=== PATIENT | female | born 1960 | race Caucasian/White ===

== ENCOUNTER 2016-04-17 16:44 | Inpatient (IN) | payer BC ==
[~2016-04-17] VITALS: Ht 157.5 cm; Wt 71.6 kg
[2016-04-17] VITALS (8 sets, daily range): BP systolic 119–176; BP diastolic 59–92; PULSE 60–84; RESP 16–20; TEMP 97.3–98.5; O2SAT 96–100
[2016-04-17] MEDS ORDERED: SODIUM CHLOR 0.9% 1000 ML INJ 1,000 ML IV ONE (16:57)
[2016-04-17] MEDS ORDERED: HYDROmorphone HCL PF 1 MG/ML VIAL IVS ONE (17:00)
[2016-04-17] MEDS ORDERED: ONDANSETRON HCL 4 MG/2 ML VIAL IVP ONE (17:00)
[2016-04-17] MEDS ORDERED: SODIUM CHLORIDE 0.9% FLUSH 5 ML FLUSH IVF PRN ×2 (17:00→19:15)
--- NOTE | 2016-04-17 17:02 | PD ---
HPI Chief Complaint: GI Complaint Time Seen by Provider: 16:57 Travel History International Travel<30 days: No Contact w/Intl Traveler<30days: No Traveled to known affect area: No History of Present Illness HPI 56-year-old female with history of migraine headaches, hypertension, presents to the ER today because she states that she had a sudden onset of pains at the back of her neck going up to the posterior part of her head. She states that the headache that she is having now is a 10 out of 10. Nauseous, vomiting. She states that this feels worse than her usual migraine. She denies any fevers or any other symptoms. Pain worsens with neck movement. She denies any injuries. Pain worsens with neck flexion. Modifying Factors: Neck flexion Associated Signs & Symptoms: Neck pain and headache, nausea and vomiting Risk Factors: Migraine headache history PFSH Past Medical History Migraines: Yes ?: Not Past Surgical History Surgical History: No Previous Surgery Social History Tobacco Use: No Allergies-Medications (Allergen,Severity, Reaction): Coded Allergies: No Known Allergies (Unverified , 04/17/16) Reported Meds & Prescriptions Reported Meds & Active Scripts Active Reported Ranitidine (Ranitidine HCl) 150 Mg Tab 150 Mg PO DAILY Cranberry (Cranberry (Vaccinium Macrocarpon)) 125 Mg Tab Zetia (Ezetimibe) 10 Mg Tab 10 Mg PO DAILY Fioricet (Gbomevpjmo-Taqpgwekrbzim-Ktsmidnt) 50-300-40 Mg Cap 1 Cap PO Q4H PRN Rhodiola (Rhodiola Rosea) 300 Mg Cap Vitamin D3 (Cholecalciferol) 1,000 Unit Chew 1,000 Units CHEW DAILY Multi-Vitamin Daily (Multiple Vitamin) 1 Tab Tab 1 Tab PO DAILY Omeprazole 20 Mg Tab 20 Mg PO DAILY Review of Systems Except as stated in HPI: all other systems reviewed are Neg Physical Exam Narrative GENERAL: Well-nourished, well-developed middle age white female patient in moderate distress. Awake and oriented 3. No photophobia. SKIN: Warm and dry. HEAD: Normocephalic. EYES: No scleral icterus. No injection or drainage. NECK: trachea midline. Mild diffuse tenderness on palpation of the posterior upper cervical area, pain with neck flexion. No obvious deformities identified. CARDIOVASCULAR: Regular rate and rhythm without murmurs, gallops, or rubs. RESPIRATORY: Breath sounds equal bilaterally. No accessory muscle use. GASTROINTESTINAL: Abdomen soft, non-tender, nondistended. MUSCULOSKELETAL: No cyanosis, or edema. BACK: Nontender without obvious deformity. No CVA tenderness. NEUROLOGICAL: Awake and alert. Cranial nerves II through XII intact. Motor and sensory grossly within normal limits. Five out of 5 muscle strength in all muscle groups. Normal speech. Data Data Last Documented VS Vital Signs Date Time Temp Pulse Resp B/P Pulse Ox O2 Delivery O2 Flow Rate FiO2 04/17/16 18:28 67 16 119/59 98 Nasal Cannula 2 04/17/16 16:48 97.3 Orders Complete Blood Count With Diff (04/17/16 16:57) Comprehensive Metabolic Panel (04/17/16 16:57) Westergren Sedimentation Rate (04/17/16 16:57) C-Reactive Protein (Crp) (04/17/16 16:57) Prothrombin Time / Inr (Pt) (04/17/16 16:57) Act Partial Throm Time (Ptt) (04/17/16 16:57) Ct Brain W/O Iv Contrast(Rout) (04/17/16 16:57) Ecg Monitoring (04/17/16 16:57) Iv Access Insert/Monitor (04/17/16 16:57) Oximetry (04/17/16 16:57) Sodium Chloride 0.9% Flush (Ns Flush) (04/17/16 17:00) Ondansetron Inj (Zofran Inj) (04/17/16 17:00) Hydromorphone Pf Inj (Dilaudid Pf Inj) (04/17/16 17:00) Sodium Chlor 0.9% 1000 Ml Inj (Ns 1000 M (04/17/16 16:57) Ct Cerv Spine W/O Contrast (04/17/16 16:57) Cta Brain W Iv Contrast W 3d (04/17/16 ) Consult Neurosurgery (04/17/16 ) Admit To Inpatient (04/17/16 ) Code Status (04/17/16 19:00) Vital Signs (Adult) YUSEF.Q1H (04/17/16 19:00) ^ Elevate Head Of Bed (04/17/16 19:00) Neuro Checks . ORDERED (04/17/16 19:00) Diet Npo (04/17/16 Dinner) Ns + Kcl 20 Meq Inj (Ns + Kcl 20 Meq Inj (04/17/16 19:00) Sodium Chloride 0.9% Flush (Ns Flush) (04/17/16 19:00) Sodium Chloride 0.9% Flush (Ns Flush) (04/17/16 21:00) Acetaminophen (Tylenol) (04/17/16 19:00) Pantoprazole Inj (Protonix Inj) (04/18/16 09:00) Ondansetron Inj (Zofran Inj) (04/17/16 19:00) Albuterol Neb (Albuterol Neb) (04/17/16 19:00) Complete Blood Count With Diff (04/18/16 04:00) Basic Metabolic Panel (Bmp) (04/18/16 04:00) Electrocardiogram (04/17/16 ) [facility] Coordinator / Telemetry (04/17/16 19:00) Scd Bilateral/Knee High YUSEF.BID (04/17/16 19:00) ^ Initiate Protocol (04/17/16 19:00) ^ Instruction (04/17/16 19:00) [facility] [place] (04/17/16 19:00) Chlorhexidine 2% Cloth (Chlorhexidine 2% (04/18/16 04:00) Chlorhexidine 2% Cloth (Chlorhexidine 2% (04/17/16 19:00) [facility] Pcr Surveillance (04/17/16 19:00) Inpatient Certification (04/17/16 ) Admit Order (Ed Use Only) (04/17/16 18:59) Nimodipine (Nimotop) (04/17/16 20:00) Ondansetron Inj (Zofran Inj) (04/17/16 19:15) Nicardipine Inj (Cardene Inj) (04/17/16 19:15) Labs Laboratory Tests Test 04/17/16 04/17/16 16:57 17:17 Prothrombin Time 11.1 SEC Prothromb Time International 1.0 RATIO Ratio Activated Partial 26.6 SEC Thromboplast Time White Blood Count 12.1 TH/MM3 Red Blood Count 4.47 MIL/MM3 Hemoglobin 13.0 GM/DL Hematocrit 38.6 % Mean Corpuscular Volume 86.4 FL Mean Corpuscular Hemoglobin 29.1 PG Mean Corpuscular Hemoglobin 33.7 % Concent Red Cell Distribution Width 13.2 % Platelet Count 335 TH/MM3 Mean Platelet Volume 8.5 FL Neutrophils (%) (Auto) 81.6 % Lymphocytes (%) (Auto) 13.8 % Monocytes (%) (Auto) 3.8 % Eosinophils (%) (Auto) 0.3 % Basophils (%) (Auto) 0.5 % Neutrophils # (Auto) 9.9 TH/MM3 Lymphocytes # (Auto) 1.7 TH/MM3 Monocytes # (Auto) 0.5 TH/MM3 Eosinophils # (Auto) 0.0 TH/MM3 Basophils # (Auto) 0.1 TH/MM3 CBC Comment DIFF FINAL Differential Comment Erythrocyte Sedimentation Rate 22 mm/hr Sodium Level 138 MEQ/L Potassium Level 3.6 MEQ/L Chloride Level 103 MEQ/L Carbon Dioxide Level 26.8 MEQ/L Anion Gap 8 MEQ/L Blood Urea Nitrogen 17 MG/DL Creatinine 0.67 MG/DL Estimat Glomerular Filtration 91 ML/MIN Rate Random Glucose 140 MG/DL Calcium Level 9.0 MG/DL Total Bilirubin 0.2 MG/DL Aspartate Amino Transf 20 U/L (AST/SGOT) Alanine Aminotransferase 24 U/L (ALT/SGPT) Alkaline Phosphatase 76 U/L C-Reactive Protein 1.38 MG/DL Total Protein 7.3 GM/DL Albumin 3.9 GM/DL MDM Medical Decision Making Medical Screen Exam Complete: Yes Emergency Medical Condition: Yes Medical Record Reviewed: Yes Interpretation(s) Laboratory Tests Test 04/17/16 17:17 White Blood Count 12.1 TH/MM3 (4.0-11.0) Neutrophils (%) (Auto) 81.6 % (16.0-70.0) Neutrophils # (Auto) 9.9 TH/MM3 (1.8-7.7) Random Glucose 140 MG/DL (74-106) C-Reactive Protein 1.38 MG/DL (0.00-0.30) Last [address] 04/17/163 Signed Impressions: Service Date/Time: Sunday, April 17, 2016 17:48 - CONCLUSION: Subarachnoid hemorrhage in the basilar cisterns and anterior to the brainstem concerning for a leaking aneurysm. Recommend further evaluation with CTA brain. findings called to emergency department physician. Juan Robertson MD Cervical Spine CT 04/17/169 Signed Impressions: Service Date/Time: Sunday, April 17, 2016 17:48 - CONCLUSION: 1. Moderate degenerative change of the lower cervical spine. No acute findings. Juan Robertson MD Differential Diagnosis Neck pain and headachesmigraine headaches versus cervical radiculopathy versus acute intracranial processes versus neck strain Narrative Course Patient was given IV fluids, Dilaudid, and Zofran in the ER. Vital signs are stable. Workup initiated including lab work and CAT scan. CAT scan reveals subarachnoid bleed. Case was discussed with Dr. Gutierrez who states that CTA will be needed for further evaluation and that the patient needs to be admitted to critical care unit under outreach counselor with consult to neurosurgery. Case was then discussed with Dr. Finch for admission. Aggregate critical care time was 25 minutes. Time to perform other separately billable procedures was not included in the critical care time. My time did not include minutes spent treating any other patients simultaneously or on activities that did not directly contribute to the patient's treatment. The services I provided to this patient were to treat and/or prevent clinically significant deterioration that could result in: Enlarging intracranial bleed, I provided critical care services requiring my management, as noted below: Chart data review, documentation time, medication orders and management, vital sign assessments/reviewing monitor data, ordering and reviewing lab tests, ordering and interpreting/reviewing x-rays and diagnostic studies, care of the patient and discussion of the patient with the admitting physicians. Diagnosis Primary Impression: Subarachnoid bleed Admitting Information Admitting Physician Requests: Admit Debora Morgan MD Apr 17, 2016 17:02
[2016-04-17] MEDS ORDERED: CHOL100025 CHEW (17:06)
[2016-04-17] MEDS ORDERED: CRAN125T (17:06)
[2016-04-17] MEDS ORDERED: BUTA1CAP PO (17:06)
[2016-04-17] MEDS ORDERED: MULT-65 PO (17:06)
[2016-04-17] MEDS ORDERED: RHOD300C (17:06)
[2016-04-17] MEDS ORDERED: RANI150T PO (17:06)
[2016-04-17] MEDS ORDERED: OMEP20TA PO (17:06)
[2016-04-17] MEDS ORDERED: ZETI10TA5 PO (17:06)
[2016-04-17 17:36] LABS: AUTOMATED NEUTROPHIL # 9.9 TH/MM3 (1.8-7.7); BASOPHIL # 0.1 TH/MM3 (0-0.2); BASOPHIL % 0.5 % (0.0-2.0); EOSINOPHIL % 0.3 % (0.0-4.0); HEMATOCRIT 38.6 % (35.0-46.0); HEMO FLAGS DIFF FINAL; LYMPH % 13.8 % (9.0-44.0); LYMPHOCYTE # 1.7 TH/MM3 (1.0-4.8); MEAN CELL VOLUME 86.4 FL (80.0-100.0); MEAN CORPUSCULAR HEMOGLOBIN 29.1 PG (27.0-34.0); MEAN CORPUSCULAR HGB CONC 33.7 % (32.0-36.0); MONO % 3.8 % (0.0-8.0); NEUT % 81.6 % (16.0-70.0); PLATELET COUNT 335 TH/MM3 (150-450); RED BLOOD COUNT 4.47 MIL/MM3 (4.00-5.30); RED CELL DISTRIBUTION WIDTH 13.2 % (11.6-17.2); WHITE BLOOD COUNT 12.1 TH/MM3 (4.0-11.0)
[2016-04-17 17:51] LABS: APTT (PATIENT) 26.6 SEC (24.3-30.1); PROTHROMBIN TIME - PATIENT 11.1 SEC (9.8-11.6)
[2016-04-17 18:00] LABS: ALT (GPT) 24 U/L (10-53); ANION GAP 8 MEQ/L (5-15); AST (GOT) 20 U/L (15-37); BICARBONATE 26.8 MEQ/L (21.0-32.0); BLOOD UREA NITROGEN 17 MG/DL (7-18); CHLORIDE 103 MEQ/L (98-107); GLOMERULAR FILTRATION RATE 91 ML/MIN (>89); POTASSIUM 3.6 MEQ/L (3.5-5.1); SODIUM (NA) 138 MEQ/L (136-145)
[2016-04-17 18:02] LABS: ALKALINE PHOSPHATASE 76 U/L (45-117); TOTAL BILIRUBIN ADULT 0.2 MG/DL (0.2-1.0)
--- NOTE | 2016-04-17 18:25 | RADRPT ---
EXAM DATE/TIME: 04/17/2016 17:48 [facility] COMPARISON: No previous studies available for comparison. INDICATIONS : Headache with nausea and pain in the back of her neck. RADIATION DOSE: 21.06 CTDIvol (mGy) MEDICAL HISTORY : None SURGICAL HISTORY : None. ENCOUNTER: Initial ACUITY: 1 day PAIN SCALE: 10/10 LOCATION: neck TECHNIQUE: Volumetric scanning of the cervical spine was performed. Multiplanar reconstructions in the sagittal, coronal and oblique axial planes were performed. Using automated exposure control and adjustment o f the mA and/or kV according to patient size, radiation dose was kept as low as reasonably achievable to obtain optimal diagnostic quality images. FINDINGS: There is moderate degenerative disc disease in the lower cervical spine. No fracture or spondylolisth esis. No significant bony canal stenosis. No prevertebral soft tissue swelling. CONCLUSION: 1. Moderate degenerative change of the lower cervical spine. No acute findings. Juan Robertson MD on April 17, 2016 at 18:20 Board Certified Radiologist. This report was verified electronically.
--- NOTE | 2016-04-17 18:32 | RADRPT ---
EXAM DATE/TIME: 04/17/2016 17:48 [facility] COMPARISON: No previous studies available for comparison. INDICATIONS : Headache with nausea starting today. RADIATION DOSE: 31.50 CTDIvol (mGy) MEDICAL HISTORY : None SURGICAL HISTORY : None. ENCOUNTER: Initial ACUITY: 1 day PAIN SCALE: 10/10 LOCATION: cranial TECHNIQUE: Multiple contiguous axial images were obtained of the head. Using automated exposure control and adj ustment of the mA and/or kV according to patient size, radiation dose was kept as low as reasonably a chievable to obtain optimal diagnostic quality images. FINDINGS: There is increased attenuation in the basilar cisterns and anterior to the brainstem in a pattern con cerning for subarachnoid hemorrhage. Primary differential diagnosis would be subarachnoid hemorrhage related to a leaking intracranial aneurysm. This would be better evaluated with CTA or MRA of the bra in. No hydrocephalus. No parenchymal hemorrhage identified. CONCLUSION: Subarachnoid hemorrhage in the basilar cisterns and anterior to the brainstem concerning for a leakin g aneurysm. Recommend further evaluation with CTA brain. findings called to emergency department physician. Juan Robertson MD on April 17, 2016 at 18:23 Board Certified Radiologist. This report was verified electronically.
[2016-04-17] MEDS ORDERED: MISCELLANEOUS NURSING INFORMATION XX SCH (19:00)
[2016-04-17] MEDS ORDERED: NS + KCL 20 MEQ INJ 1,000 ML IV SCH (19:00)
[2016-04-17] MEDS ORDERED: RESP: ALBUTEROL 2.5 MG/3 ML NEB (PRN) INH (19:00)
[2016-04-17] MEDS ORDERED: SODIUM CHLORIDE 0.9% FLUSH 5 ML FLUSH IV FLUSH PRN (19:00)
[2016-04-17] MEDS ORDERED: CHLORHEXIDINE GLUCONATE 2 % 1 PACK (2 CLOTHS) TOP PRN (19:00)
[2016-04-17] MEDS ORDERED: ACETAMINOPHEN 325 MG TAB PO PRN (19:00)
[2016-04-17] MEDS ORDERED: LABETALOL HCL 100 MG/20 ML VIAL IV PRN (19:15)
[2016-04-17] MEDS ORDERED: MAGNESIUM HYDROXIDE SUSP 30 ML CUP PO PRN (19:15)
[2016-04-17] MEDS ORDERED: cloNIDine HCL 0.1 MG TAB PO PRN (19:15)
[2016-04-17] MEDS ORDERED: ONDANSETRON HCL 4 MG/2 ML VIAL IV PUSH ONE (19:15)
[2016-04-17] MEDS ORDERED: niCARdipine INJ 25 MG in SODIUM CHLOR 0.9% 250 ML INJ 250 ML IV SCH ×4 (19:15)
[2016-04-17] MEDS ORDERED: levETIRAcetam 1000 MG INJ 100 ML IV ONE (19:15)
[2016-04-17] MEDS ORDERED: IOHEXOL 350 MG/ML 10 ML VIAL (for RAD DIAG) IV ONE (19:21)
[2016-04-17] MEDS: SODIUM CHLOR 0.9% 1000 ML INJ 1,000 ML IV SCH (19:35)
[2016-04-17] MEDS: ONDANSETRON ODT 4 MG TAB PO SCH ×2 (20:00→23:17)
[2016-04-17] MEDS ORDERED: niMODipine 30 MG CAP PO SCH (20:00)
--- NOTE | 2016-04-17 20:09 | PD.CONS ---
HPI Service Neurosurgery Consult Requested By ED Reason for Consult [facility] Primary Care Physician Non-Staff History of Present Illness 56 year old RH female with a hx of migraine headache sat in a high chair today for a hair cut and nearly fell. She suffered a neck jolt. Within ten minutes her jaws started to hurt bilaterally followed by an excruciating Rivera with nausea/ vomiting. She has no vertigo, no focal cranial nerve deficit. The pain and nausea remain severe. GCS is 14 for lethargy due to pain. She has no family hx of aneurysm. Review of Systems ROS Limitations: Other (pain) Constitutional: DENIES: Diaphoretic episodes, Fatigue, Fever, Weight gain, Weight loss, Chills, Dizziness, Change in appetite, Night Sweats Endocrine: DENIES: Abnorml menstrual pattern, Heat/cold intolerance, Polydipsia , Polyuria, Polyphagia Eyes: DENIES: Blurred vision, Diplopia, Eye inflammation, Eye pain, Vision loss , Photosensitivity, Double Vision Ears, nose, mouth, throat: DENIES: Tinnitus, Hearing loss, Vertigo, Nasal discharge, Oral lesions, Throat pain, Hoarseness, Ear Pain, Running Nose, Epistaxis, Sinus Pain, Toothache, Odynophagia Respiratory: DENIES: Apneas, Cough, Snoring, Wheezing, Hemoptysis, Sputum production, Shortness of breath Cardiovascular: DENIES: Chest pain, Palpitations, Syncope, Dyspnea on Exertion , PND, Lower Extremity Edema, Orthopnea, Claudication Gastrointestinal: COMPLAINS OF: Diarrhea, Vomiting, DENIES: Abdominal pain, Black stools, Bloody stools, Constipation, Nausea, Difficulty Swallowing, Anorexia Genitourinary: DENIES: Abnormal vaginal bleeding, Dysmenorrhea, Dyspareunia, Sexual dysfunction, Urinary frequency, Urinary incontinence, Urgency, Hematuria , Dysuria, Nocturia, Vaginal discharge Musculoskeletal: COMPLAINS OF: Neck pain, DENIES: Joint pain, Muscle aches, Stiffness, Joint Swelling, Back pain Integumentary: DENIES: Abnormal pigmentation, Pruritus, Rash, Nail changes, Breast masses, Breast skin changes, Nipple discharge Hematologic/lymphatic: DENIES: Bruising, Lymphadenopathy Immunologic/allergic: DENIES: Eczema, Urticaria Neurologic: COMPLAINS OF: Headache, DENIES: Abnormal gait, Localized weakness , Paresthesias, Seizures, Speech Problems, Tremor, Poor Balance Psychiatric: DENIES: Anxiety, Confusion, Mood changes, Depression, Hallucinations, Agitation, Suicidal Ideation, Homicidal Ideation, Delusions Past Family Social History Allergies: Coded Allergies: No Known Allergies (Unverified , 04/17/16) Past Medical History HTN Past Surgical History foot surgery Reported Medications Reported Meds & Active Scripts Active Reported Ranitidine (Ranitidine HCl) 150 Mg Tab 150 Mg PO DAILY Cranberry (Cranberry (Vaccinium Macrocarpon)) 125 Mg Tab Zetia (Ezetimibe) 10 Mg Tab 10 Mg PO DAILY Fioricet (Uocvuqoyky-Ydhfkcrmbqtte-Sskpuapr) 50-300-40 Mg Cap 1 Cap PO Q4H PRN Rhodiola (Rhodiola Rosea) 300 Mg Cap Vitamin D3 (Cholecalciferol) 1,000 Unit Chew 1,000 Units CHEW DAILY Multi-Vitamin Daily (Multiple Vitamin) 1 Tab Tab 1 Tab PO DAILY Omeprazole 20 Mg Tab 20 Mg PO DAILY Family History Parents are alive, father has migraines, some family members have HTN Social History , retired from last February, does not smoke, lives in [place] Physical Exam Vital Signs Vital Signs Date Time Temp Pulse Resp B/P Pulse Ox O2 Delivery O2 Flow Rate FiO2 04/17/16 18:28 67 16 119/59 98 Nasal Cannula 2 04/17/16 18:02 15 04/17/16 17:43 78 17 152/84 99 2 04/17/16 17:02 96 Room Air 04/17/16 16:56 18 04/17/16 16:48 97.3 80 20 176/92 97 Room Air Physical Exam Pleasant lady, cooperative and able to follow commands, very nauseous, atraumatic head and body, EOMI, pupils 2mm reactive, no nystagmus, face symmetric, tongue midline, voice intact No pronator drift, moves all ext with excellent strength, no sensory level, no neglect, no radicular numbness or paresthesias. Reflexes are 1/4 in the bic/tri/patella, no Abdul, no Babinski Abd soft NT, no peripheral edema, no rashes Laboratory Laboratory Tests Test 04/17/16 04/17/16 16:57 17:17 Prothrombin Time 11.1 Prothromb Time International 1.0 Ratio Activated Partial 26.6 Thromboplast Time White Blood Count 12.1 Red Blood Count 4.47 Hemoglobin 13.0 Hematocrit 38.6 Mean Corpuscular Volume 86.4 Mean Corpuscular Hemoglobin 29.1 Mean Corpuscular Hemoglobin 33.7 Concent Red Cell Distribution Width 13.2 Platelet Count 335 Mean Platelet Volume 8.5 Neutrophils (%) (Auto) 81.6 Lymphocytes (%) (Auto) 13.8 Monocytes (%) (Auto) 3.8 Eosinophils (%) (Auto) 0.3 Basophils (%) (Auto) 0.5 Neutrophils # (Auto) 9.9 Lymphocytes # (Auto) 1.7 Monocytes # (Auto) 0.5 Eosinophils # (Auto) 0.0 Basophils # (Auto) 0.1 CBC Comment DIFF FINAL Differential Comment Erythrocyte Sedimentation Rate 22 Sodium Level 138 Potassium Level 3.6 Chloride Level 103 Carbon Dioxide Level 26.8 Anion Gap 8 Blood Urea Nitrogen 17 Creatinine 0.67 Estimat Glomerular Filtration 91 Rate Random Glucose 140 Calcium Level 9.0 Total Bilirubin 0.2 Aspartate Amino Transf 20 (AST/SGOT) Alanine Aminotransferase 24 (ALT/SGPT) Alkaline Phosphatase 76 C-Reactive Protein 1.38 Total Protein 7.3 Albumin 3.9 Result Diagram: 04/17/16171604/17/161716 Imaging Last Impressions Head CT 04/17/161656 Signed Impressions: Service Date/Time: Sunday, April 17, 2016 17:48 - CONCLUSION: Subarachnoid hemorrhage in the basilar cisterns and anterior to the brainstem concerning for a leaking aneurysm. Recommend further evaluation with CTA brain. findings called to emergency department physician. Juan Robertson MD Cervical Spine CT 04/17/161656 Signed Impressions: Service Date/Time: Sunday, April 17, 2016 17:48 - CONCLUSION: 1. Moderate degenerative change of the lower cervical spine. No acute findings. Juan Robertson MD Assessment and Plan Diagnosis: (1) Subarachnoid bleed Plan: Perimesencephalic hemorrhage with no focal deficit, 2-3mm clot in the ambien cistern with blood seen down to C2. Plan CTA, MRI/MRA to rule out a dissection of the VAs or a small aneurysm of the posterior circulation. TCDs, nimotop, keppra, DVT and PUD prophylaxis ordered per protocol. Will control the BP to keep the SBP 120-140 ICD Code: I60.9 (2) HTN (hypertension) ICD Code: I10 Problem Qualifiers (1) HTN (hypertension): Qualified Code: I10 - Essential hypertension Brock Gutierrez Apr 17, 2016 20:09
[2016-04-17] MEDS ORDERED: PROMETHAZINE INJ 25 MG/ML VIAL IM PRN ×2 (20:15→22:00)
--- NOTE | 2016-04-17 20:23 | RADRPT ---
EXAM DATE/TIME: 04/17/2016 19:08 [facility] COMPARISON: No previous studies available for comparison. INDICATIONS : Evaluate for aneurysm. IV CONTRAST: 75 cc Omnipaque 350 (iohexol) IV RADIATION DOSE: 18.14 CTDIvol (mGy) MEDICAL HISTORY : None SURGICAL HISTORY : Kidney Cryo. ENCOUNTER: Initial ACUITY: 1 day PAIN SCALE: 5/10 LOCATION: cranial TECHNIQUE: Volumetric scanning was performed using a multi-row detector CT scanner. The data was post processed with a variety of visualization algorithms including full volume maximum intensity projection, multi -planar sliding thin slab reformation, curved planar reformation, and surface rendering techniques. Using automated exposure control and adjustment of the mA and/or kV according to patient size, radiat ion dose was kept as low as reasonably achievable to obtain optimal diagnostic quality images. FINDINGS: There is excellent visualization of the major intracranial arteries out to the second-order branch ve ssels. There is no evidence for aneurysm, vessel truncation or stenosis, and no evidence for vascula r malformation. CONCLUSION: 1. No discrete aneurysm is identified on CTA brain. There does appear be some mild vasospasm. Juna Robertson MD on April 17, 2016 at 20:14 Board Certified Radiologist. This report was verified electronically.
[2016-04-17] MEDS: HYDROmorphone HCL PF 1 MG/ML VIAL IV PUSH PRN (20:28)
--- NOTE | 2016-04-17 20:31 | HHI.HP ---
HPI Service Critical Care Medicine Primary Care Physician Non-Staff Admission Diagnosis subarachnoid bleed Diagnosis: Travel History International Travel<30 Days: No Contact w/Intl Traveler <30 Da: No Traveled to Known Affected Are: No History of Present Illness 56 yo WF with PMH of hyperlipidemia, migraine headaches who presented to [facility] ED today for sudden onset of headache 10/10 severity, bilateral jaw pain, neck pain , nausea, and photophobia that started after getting a haircut. CT brain demonstrated SAH in basilar cisterns concerning for aneurysmal leak. Neurosurgery has seen the patient and requested admission to critical care medicine service. Coags are normal. She is nauseated and continues to complain of headache. Denies weakness, parasthesias, seizures, SOB. Review of Systems Gastrointestinal: COMPLAINS OF: Nausea Neurologic: COMPLAINS OF: Headache Past Family Social History Allergies: Coded Allergies: No Known Allergies (Unverified , 04/17/16) Past Medical History Migraines GERD/esophagitis Hyperlipidemia Statin intolerance Past Surgical History Right foot bunion removal Cryoablation of right renal mass October 2015 Reported Medications Fioricet 1 By mouth every 4 hours when necessary pain Zetia 10 mg by mouth daily Family History She says she has other family members with migraines. No family history of cerebral aneurysm. 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 She arrived in March 2016 She is a lifetime nonsmoker. Drinks alcohol occasionally. Denies use of illicit drugs. Is . Physical Exam Vital Signs Vital Signs Date Time Temp Pulse Resp B/P Pulse Ox O2 Delivery O2 Flow Rate FiO2 04/17/16 18:28 67 16 119/59 98 Nasal Cannula 2 04/17/16 18:02 15 04/17/16 17:43 78 17 152/84 99 2 04/17/16 17:02 96 Room Air 04/17/16 16:56 18 04/17/16 16:48 97.3 80 20 176/92 97 Room Air Physical Exam Temp 98.5 pulse 84 respirations 16 blood pressure 162/74 sats 99% on 2 L nasal cannula GENERAL: Well-nourished, well-developed patient who is laying in ISC bed, in darkened room, laying very still. SKIN: Warm and dry. HEAD: Atraumatic. Normocephalic. EYES: Pupils 2 mm and sluggishly reactive bilaterally. No scleral icterus. No injection or drainage. ENT: No nasal bleeding or discharge. Mucous membranes pink and moist. NECK: Trachea midline. No JVD. CARDIOVASCULAR: Regular rate and rhythm. No murmurs rubs or gallops. RESPIRATORY: No accessory muscle use. Clear to auscultation. Breath sounds equal bilaterally. GASTROINTESTINAL: Abdomen soft, non-tender, nondistended. Bowel sounds present. MUSCULOSKELETAL: Extremities without clubbing, cyanosis, or edema. NEUROLOGICAL: Awake and alert, oriented x2. No obvious cranial nerve deficits. Five out of 5 muscle strength in the arms and legs. Sensation intact. No pronator drift. Normal speech. Laboratory Laboratory Tests Test 04/17/16 04/17/16 16:57 17:17 Prothrombin Time 11.1 Prothromb Time International 1.0 Ratio Activated Partial 26.6 Thromboplast Time White Blood Count 12.1 Red Blood Count 4.47 Hemoglobin 13.0 Hematocrit 38.6 Mean Corpuscular Volume 86.4 Mean Corpuscular Hemoglobin 29.1 Mean Corpuscular Hemoglobin 33.7 Concent Red Cell Distribution Width 13.2 Platelet Count 335 Mean Platelet Volume 8.5 Neutrophils (%) (Auto) 81.6 Lymphocytes (%) (Auto) 13.8 Monocytes (%) (Auto) 3.8 Eosinophils (%) (Auto) 0.3 Basophils (%) (Auto) 0.5 Neutrophils # (Auto) 9.9 Lymphocytes # (Auto) 1.7 Monocytes # (Auto) 0.5 Eosinophils # (Auto) 0.0 Basophils # (Auto) 0.1 CBC Comment DIFF FINAL Differential Comment Erythrocyte Sedimentation Rate 22 Sodium Level 138 Potassium Level 3.6 Chloride Level 103 Carbon Dioxide Level 26.8 Anion Gap 8 Blood Urea Nitrogen 17 Creatinine 0.67 Estimat Glomerular Filtration 91 Rate Random Glucose 140 Calcium Level 9.0 Total Bilirubin 0.2 Aspartate Amino Transf 20 (AST/SGOT) Alanine Aminotransferase 24 (ALT/SGPT) Alkaline Phosphatase 76 C-Reactive Protein 1.38 Total Protein 7.3 Albumin 3.9 Result Diagram: 04/17/16171604/17/161716 Assessment and Plan Assessment and Plan NEURO: Acute spontaneous subarachnoid hemorrhage, Temple Almeida grade 2 Nimodipine 60 mg by mouth every 4 hours. Cardene if needed to maintain systolic blood pressure 100-140 Maintain normothermia. Ofirmev 1 g IV every 8 hours. Avoid hypovolemia, hyponatremia Dilaudid 0.5-1 mg IV every 3 hours when necessary pain. Consider dilaudid ASSEMBLER SEMICONDUCTOR, though patient currently does not want one. CTA brain reportedly shows noted aneurysm. There is reportedly mild vasospasm. MRA brain and neckmild plaque at carotid bifurcations without hemodynamically significant stenosis. No cerebrovascular abnormality. Neurosurgery following, Dr. Gutierrez. Possible formal angiogram in am. RESP: Nasal cannula wean as tolerated CV: Hyperlipidemia Statin intolerance (myalgias) Continue Zetia 10 mg by mouth daily GI: GERD Nausea Nothing by mouth Zofran 4 mg IV every 6 hours when necessary nausea Phenergan 25 mg IM every 6 hours Protonix 40 g IV daily FEN/RENAL: Normal renal function. Monitor intake and output. Monitor electrolytes and replace as indicated per ICU electrolyte replacement protocol. ID: Mild reactive leukocytosis. Monitor for evidence of infection. HEME: Follow-up CBC ENDO: Mild hyperglycemia. Monitor glucose and use low-dose insulin sliding scale if indicated. PROPH: SCDs for DVT prophylaxis. Protonix 40 mg IV daily for stress ulcer prophylaxis and history of GERD and esophagitis. ACCESS: Peripheral IV providing adequate access at this time. Patient updated at bedside. Discussed with bedside RN. Critical care time 45 minutes exclusive of separately billable procedures. Aleshia Finch MD Apr 17, 2016 20:31
[2016-04-17] MEDS ORDERED: GADODIAMIDE PF 287 MG/ML 20 ML VIAL (for RAD MRI) IV ONE (20:46)
[2016-04-17] MEDS ORDERED: SODIUM CHLORIDE 0.9% FLUSH 5 ML FLUSH IVF SCH (21:00)
--- NOTE | 2016-04-17 21:46 | RADRPT ---
EXAM DATE/TIME: 04/17/2016 20:39 [facility] COMPARISON: No previous studies available for comparison. INDICATIONS : Cephalgia. Abnormal CT. MEDICAL HISTORY : None. SURGICAL HISTORY : None applicable. ENCOUNTER: Initial ACUITY: 1 day PAIN SCORE: 10/10 LOCATION: cranial Patient was premedicated per protocol for underlying contrast media allergy. TECHNIQUE: Multiplanar, multisequence MRI of the brain was performed without contrast. FINDINGS: Examination reveals some subarachnoid hemorrhage in the basilar cisterns and in the perimesencephalic and pre-pontine cistern. No mass effect or midline shift. No hydrocephalus. No evidence for recent i nfarction. CONCLUSION: 1. Subarachnoid hemorrhage predominantly around the brainstem. No recent infarction, mass effect or s hift. No hydrocephalus. Juan Robertson MD on April 17, 2016 at 21:43 Board Certified Radiologist. This report was verified electronically.
--- NOTE | 2016-04-17 21:49 | RADRPT ---
EXAM DATE/TIME: 04/17/2016 20:39 [facility] COMPARISON: No previous studies available for comparison. INDICATIONS : Cephalgia , abnormal CT. CONTRAST: 20 cc Omniscan (gadodiamide) IV MEDICAL HISTORY : None. SURGICAL HISTORY : None applicable. ENCOUNTER: Initial ACUITY: 1 day PAIN SCORE: 0/10 LOCATION: neck Percent stenosis is calculated using the diameter of the stenotic region over the diameter of the nor mal distal internal carotid artery. TECHNIQUE: Bolus infused MRA of the extracranial circulation was performed using a neurovascular coil. Post pro cessing was performed including rotationg subvolume maximum intensity projections of each carotid art rachel, rotating full volume maximum intensity projections of both carotid arteries, sagittal and moore l sliding thin slab reformations of each carotid artery, and left oblique sliding thin slab reformati on through the aortic arch to include the origin of the arch branch vessels. FINDINGS: Great vessel origins are patent. Both common carotid arteries are patent. There is mild plaque at bot h carotid bifurcations without hemodynamically significant stenosis. Remainder of the internal caroti d arteries are patent. Both vertebral arteries are patent within the neck and fairly symmetric. CONCLUSION: 1. Mild plaque at the carotid bifurcations bilaterally without hemodynamically significant stenosis. Remainder of exam unremarkable. Juan Robertson MD on April 17, 2016 at 21:45 Board Certified Radiologist. This report was verified electronically.
[2016-04-17] MEDS: niMODipine 30 MG CAP PO SCH ×2 (21:51→23:17)
--- NOTE | 2016-04-17 21:52 | RADRPT ---
EXAM DATE/TIME: 04/17/2016 20:39 [facility] COMPARISON: No previous studies available for comparison. INDICATIONS : Cephalgia. Abnormal CT. MEDICAL HISTORY : None. SURGICAL HISTORY : None applicable. ENCOUNTER: Initial ACUITY: 1 day PAIN SCORE: 10/10 LOCATION: cranial Please note a normal MRA of the brain does not entirely exclude the possibility of a small aneurysm, nor the possibility of distal intracranial vessel disease. TECHNIQUE: 3D time of flight MRA was performed. Source images, multiplanar STS MIP, and 3D volume MIP reconstru ctions were reviewed. FINDINGS: There is excellent visualization of the major intracranial arteries out to the second-order branch ve ssels. There is no evidence for aneurysm, vessel truncation or stenosis, and no evidence for vascula r malformation. CONCLUSION: Normal examination for a patient of this age. Juan Rboertson MD on April 17, 2016 at 21:48 Board Certified Radiologist. This report was verified electronically.
[2016-04-17] MEDS: MORPHINE SULFATE 4 MG/ML INJ IV PRN (21:55)
[2016-04-17] MEDS: SODIUM CHLORIDE 0.9% FLUSH 5 ML FLUSH IV FLUSH SCH (21:55)
[2016-04-17] MEDS ORDERED: HYDROmorphone HCL PF 1 MG/ML VIAL IV PUSH PRN (22:00)
[2016-04-17] MEDS ORDERED: SODIUM PHOSPHATE INJ 30 MMOL in SODIUM CHLOR 0.9% 250 ML INJ 240 ML IV PRN (22:45)
[2016-04-17] MEDS ORDERED: POTASSIUM PHOSPHATE MONOBASIC 500 MG TAB PO PRN (22:45)
[2016-04-17] MEDS ORDERED: MAGNESIUM SULFATE INJ 4 GM in SODIUM CHLORIDE 0.9% INJ 92 ML IV PRN (22:45)
[2016-04-17] MEDS ORDERED: POTASSIUM CHLOR 20 MEQ PREMIX 100 ML IV PRN ×2 (22:45)
[2016-04-17] MEDS ORDERED: POTASSIUM PHOSPHATE INJ 30 MMOL in SODIUM CHLOR 0.9% 250 ML INJ 250 ML IV PRN (22:45)
[2016-04-17] MEDS ORDERED: POTASSIUM PHOSPHATE MONOBASIC 500 MG TAB PO/TUBE PRN (22:45)
[2016-04-17] MEDS ORDERED: POTASSIUM CL 40 MEQ/30 ML LIQ UDC PO/TUBE PRN ×2 (22:45)
[2016-04-17] MEDS ORDERED: MAGNESIUM SULFATE INJ 2 GM in SODIUM CHLORIDE 0.9% INJ 96 ML IV PRN (22:45)
[2016-04-17] MEDS ORDERED: POTASSIUM CHLOR 40 MEQ PREMIX 100 ML IV PRN ×2 (22:45)
[2016-04-17] MEDS ORDERED: MAGNESIUM OXIDE 400 MG TAB PO PRN (22:45)
[2016-04-17] MEDS: ACETAMINOPHEN/HYDROcodone 325 MG/5 MG TAB PO PRN (23:17)
[2016-04-17] MEDS: ACETAMINOPHEN 1000 MG/100 ML VIAL IV SCH (23:17)
[2016-04-18] VITALS (15 sets, daily range): BP systolic 104–119; BP diastolic 55–68; PULSE 61–81; RESP 16–28; TEMP 97.9–98.7; O2SAT 93–100
[2016-04-18] MEDS: HYDROmorphone HCL PF 1 MG/ML VIAL IV PUSH PRN ×4 (03:12→20:29)
[2016-04-18] MEDS: CHLORHEXIDINE GLUCONATE 2 % 1 PACK (2 CLOTHS) TOP SCH (03:13)
[2016-04-18] MEDS: niMODipine 30 MG CAP PO SCH ×6 (03:13→23:27)
[2016-04-18] MEDS: ONDANSETRON ODT 4 MG TAB PO SCH ×6 (03:13→23:27)
[2016-04-18] MEDS: ACETAMINOPHEN 1000 MG/100 ML VIAL IV SCH ×3 (04:58→20:03)
[2016-04-18 05:39] LABS: AUTOMATED NEUTROPHIL # 9.6 TH/MM3 (1.8-7.7); BASOPHIL # 0.1 TH/MM3 (0-0.2); BASOPHIL % 0.7 % (0.0-2.0); EOSINOPHIL # 0.1 TH/MM3 (0-0.4); EOSINOPHIL % 0.5 % (0.0-4.0); HEMATOCRIT 38.7 % (35.0-46.0); HEMO FLAGS DIFF FINAL; LYMPH % 19.7 % (9.0-44.0); LYMPHOCYTE # 2.6 TH/MM3 (1.0-4.8); MEAN CELL VOLUME 87.1 FL (80.0-100.0); MEAN CORPUSCULAR HEMOGLOBIN 28.6 PG (27.0-34.0); MEAN CORPUSCULAR HGB CONC 32.8 % (32.0-36.0); MONO % 5.8 % (0.0-8.0); NEUT % 73.3 % (16.0-70.0); PLATELET COUNT 300 TH/MM3 (150-450); RED BLOOD COUNT 4.44 MIL/MM3 (4.00-5.30); RED CELL DISTRIBUTION WIDTH 13.1 % (11.6-17.2); WHITE BLOOD COUNT 13.2 TH/MM3 (4.0-11.0)
[2016-04-18 05:42] LABS: APTT (PATIENT) 28.3 SEC (24.3-30.1); PROTHROMBIN TIME - PATIENT 11.4 SEC (9.8-11.6)
[2016-04-18 06:10] LABS: BICARBONATE 25.7 MEQ/L (21.0-32.0); POTASSIUM 4.1 MEQ/L (3.5-5.1)
[2016-04-18 06:12] LABS: INDIRECT BILIRUBIN 0.2 MG/DL (0.0-0.8); TOTAL BILIRUBIN ADULT 0.3 MG/DL (0.2-1.0)
[2016-04-18] MEDS ORDERED: PANTOPRAZOLE SODIUM 40 MG VIAL IV SCH (09:00)
[2016-04-18] MEDS: EZETIMIBE 10 MG TAB PO SCH (09:17)
[2016-04-18] MEDS: SODIUM CHLOR 0.9% 1000 ML INJ 1,000 ML IV SCH ×3 (09:17→23:27)
[2016-04-18] MEDS: SODIUM CHLORIDE 0.9% FLUSH 5 ML FLUSH IV FLUSH SCH ×2 (09:17→20:04)
[2016-04-18] MEDS: PANTOPRAZOLE SODIUM 40 MG VIAL IVP SCH (09:17)
--- NOTE | 2016-04-18 09:36 | HHI.NSPN ---
Subjective History 56 yr old day 1 after perimesencephalic bleed, still has nausea and headaches but has no new neurologic deficit. CTA, MRA of the neck were performed. No dissection or aneurysm is seen so far. GCS 15. Vitals . Vital Signs Date Time Temp Pulse Resp B/P Pulse Ox O2 Delivery O2 Flow Rate FiO2 04/18/16 08:22 96 21 04/18/16 08:00 69 04/18/16 08:00 98.7 69 16 119/68 93 04/18/16 07:00 94 Room Air 04/18/16 06:00 61 04/18/16 05:57 99 Nasal Cannula 2.00 04/18/16 04:00 62 04/18/16 04:00 98.5 62 16 104/55 99 04/18/16 02:00 64 04/18/16 00:00 64 04/18/16 00:00 98.6 64 16 105/57 100 04/17/16 22:00 72 04/17/16 21:15 Nasal Cannula 2.00 04/17/16 21:15 84 04/17/16 21:15 98.5 84 16 162/74 99 04/17/16 20:30 65 16 122/63 98 Nasal Cannula 2 04/17/16 19:30 60 16 120/60 100 Nasal Cannula 2 04/17/16 18:28 67 16 119/59 98 Nasal Cannula 2 04/17/16 18:02 15 04/17/16 17:43 78 17 152/84 99 2 04/17/16 17:02 96 Room Air 04/17/16 16:56 18 04/17/16 16:48 97.3 80 20 176/92 97 Room Air 04/17/16 04/17/16 04/18/16 15:00 23:00 07:00 Intake Total 0 ml 713 ml Output Total 400 ml 1100 ml Balance -400 ml -387 ml Physical Exam Head Head: Atraumatic Eyes Eyes: Pupils Equal Neuro Mental Status: Lethargic, Oriented x 3 Pupils: Reactive Bilaterally Speech: Clear Dubois Coma Scale Best Eye Openin - Spontaneous Best Verbal: 5 - Oriented Best Motor: 6 - Obeys Sensation: Intact Cardiac Cardiac: Regular Rate & Rhythm Gastrointestinal Gastrointestinal: Soft Genitourinary Genitourinary: Good Urine Output Musculoskeletal Musculoskeletal: Moves all extrem with 5/5 strength (no pronator drift, no dysmetria, face symmetric ) Extremities Upper Extremities Deltoid Bicep Tricep HI W. Ext Right Left Lower Extremeties Ilio Quad Plantar Dorsi EHL Right Left Dermatologic Dermatologic: Skin Intact Extremities Edema: SCDs Objective Labs Laboratory Tests 04/17/16 17:17 04/18/16 05:11 Laboratory Tests Test 04/17/16 04/18/16 17:17 05:11 Sodium Level 138 MEQ/L 140 MEQ/L Potassium Level 3.6 MEQ/L 4.1 MEQ/L Chloride Level 103 MEQ/L 105 MEQ/L Carbon Dioxide Level 26.8 MEQ/L 25.7 MEQ/L Anion Gap 8 MEQ/L 9 MEQ/L Blood Urea Nitrogen 17 MG/DL 9 MG/DL Creatinine 0.67 MG/DL 0.59 MG/DL Estimat Glomerular Filtration 91 ML/MIN 106 ML/MIN Rate Random Glucose 140 MG/DL 97 MG/DL Calcium Level 9.0 MG/DL 8.6 MG/DL Total Bilirubin 0.2 MG/DL 0.3 MG/DL Aspartate Amino Transf 20 U/L 17 U/L (AST/SGOT) Alanine Aminotransferase 24 U/L 24 U/L (ALT/SGPT) Alkaline Phosphatase 76 U/L 72 U/L C-Reactive Protein 1.38 MG/DL Total Protein 7.3 GM/DL 6.7 GM/DL Albumin 3.9 GM/DL 3.6 GM/DL Direct Bilirubin 0.1 MG/DL Indirect Bilirubin 0.2 MG/DL Laboratory Tests Test 04/17/16 17:17 Ethyl Alcohol Level LESS THAN 3 MG/DL Imaging Remarks Last Impressions Head CT 04/17/161656 Signed Impressions: Service Date/Time: Sunday, April 17, 2016 17:48 - CONCLUSION: Subarachnoid hemorrhage in the basilar cisterns and anterior to the brainstem concerning for a leaking aneurysm. Recommend further evaluation with CTA brain. findings called to emergency department physician. Juan Robertson MD Cervical Spine CT 04/17/161656 Signed Impressions: Service Date/Time: Sunday, April 17, 2016 17:48 - CONCLUSION: 1. Moderate degenerative change of the lower cervical spine. No acute findings. Juan Robertson MD Neck Magnetic Resonance Angiography 04/17/16 Signed Impressions: Service Date/Time: Sunday, April 17, 2016 20:39 - CONCLUSION: 1. Mild plaque at the carotid bifurcations bilaterally without hemodynamically significant stenosis. Remainder of exam unremarkable. Juan Robertson MD Head Magnetic Resonance Angiography 04/17/16 Signed Impressions: Service Date/Time: Sunday, April 17, 2016 20:39 - CONCLUSION: Normal examination for a patient of this age. Juan Robertson MD Head CTA 04/17/16 Signed Impressions: Service Date/Time: Sunday, April 17, 2016 19:08 - CONCLUSION: 1. No discrete aneurysm is identified on CTA brain. There does appear be some mild vasospasm. Juan Robertson MD Brain MRI 04/17/16 Signed Impressions: Service Date/Time: Sunday, April 17, 2016 20:39 - CONCLUSION: 1. Subarachnoid hemorrhage predominantly around the brainstem. No recent infarction, mass effect or shift. No hydrocephalus. Juan Robertson MD Assessment & Plan Diagnosis: (1) Subarachnoid bleed Plan: Perimesencephalic hemorrhage with no focal deficit, 2-3mm clot in the ambien cistern with blood seen down to C2. Plan CTA, MRI/MRA to rule out a dissection of the VAs or a small aneurysm of the posterior circulation. TCDs, nimotop, keppra, DVT and PUD prophylaxis ordered per protocol. Will control the BP to keep the SBP 120-140 04/18/16 Benign perimesencephalic SAH so far but TCDs are pending. We will continue supportive care, seizure prophylaxis, BP control. nimodipine and start OT/PT. Plan cerebral angiogram when some of the blood resolves. (2) HTN (hypertension) Plan: On nimodipine and labetolol PRN. Critical Care Time (minutes): Brock Leahy Apr 18, 2016 9:36 am
--- NOTE | 2016-04-18 09:38 | EKG ---
Date Performed: 04/17/2016 Time Performed: 19:32:18 PTAGE: 56 years EKG: Sinus rhythm NORMAL ECG NO PREVIOUS TRACING DOCTOR: Tony Lowe Interpretating Date/Time 04/18/2016 09:36:28
--- NOTE | 2016-04-18 10:49 | HHI.CCPN ---
Subjective Remarks/Hospital Course 56 yo WF with PMH of hyperlipidemia, migraine headaches who presented [place] [facility] today for sudden onset of headache 10/10 severity, bilateral jaw pain, neck pain , nausea, and photophobia that started after getting a haircut. CT brain demonstrated SAH in basilar cisterns concerning for aneurysmal leak. Neurosurgery has seen the patient and requested admission to critical care medicine service. Coags are normal. She is nauseated and continues to complain of headache. Denies weakness, parasthesias, seizures, SOB. SUBJ Lying in bed. complaints of head ache and nausea, CTA brain, MRA brain and neck negative for aneurysm. BP control adequate. Remains on Nimotop Objective Vital Signs Date Time Temp Pulse Resp B/P Pulse Ox O2 Delivery O2 Flow Rate FiO2 04/18/16 10:00 68 04/18/16 08:22 96 21 04/18/16 08:00 98.7 16 119/68 04/18/16 07:00 Room Air 04/18/16 05:57 2.00 Intake and Output 04/17/16 04/17/16 04/18/16 08:00 16:00 00:00 Intake Total 0 ml Output Total 400 ml Balance -400 ml Result Diagram: 04/18/16 0504/18/16 0511 Objective Remarks GENERAL: Well-nourished, well-developed patient who is laying in ISC bed, in darkened room, laying still. SKIN: Warm and dry. HEAD: Atraumatic. Normocephalic. EYES: Pupils 2 mm and sluggishly reactive bilaterally. No scleral icterus. No injection or drainage. ENT: No nasal bleeding or discharge. Mucous membranes pink and moist. NECK: Trachea midline. No JVD. CARDIOVASCULAR: Regular rate and rhythm. No murmurs rubs or gallops. RESPIRATORY: Clear to auscultation. Breath sounds equal bilaterally. GASTROINTESTINAL: Abdomen soft, non-tender, nondistended. Bowel sounds present. MUSCULOSKELETAL: Extremities without clubbing, cyanosis, or edema. NEUROLOGICAL: Awake and alert, oriented. No obvious cranial nerve deficits. Five out of 5 muscle strength in the arms and legs. Sensation intact. No pronator drift. Normal speech. Urinary Catheter: Yes Assessment to: Continue A/P Assessment and Plan NEURO: Acute spontaneous subarachnoid hemorrhage, Temple Almeida grade 2 Nimodipine 60 mg by mouth every 4 hours. Cardene if needed to maintain systolic blood pressure 120-140 Maintain normothermia. Ofirmev 1 g IV every 8 hours. Avoid hypovolemia, hyponatremia Dilaudid 0.5-1 mg IV every 3 hours when necessary pain. CTA brain, MRA brain and neck shows no aneurysm. There is reportedly mild vasospasm. Neurocheck q1 hour, Watch closely for worsening vasospasm No cerebrovascular abnormality. Neurosurgery following, Dr. Gutierrez. Possible formal angiogram in am in 1-2 RESP: Nasal cannula wean as tolerated CV: Hyperlipidemia Statin intolerance (myalgias) Continue Zetia 10 mg by mouth daily GI: GERD Nausea Nothing by mouth, Diet if patient can tolerate, and is nausea improved Zofran 4 mg IV every 6 hours when necessary nausea Phenergan 25 mg IM every 6 hours Protonix 40 g IV daily FEN/RENAL: Normal renal function. Monitor intake and output. Monitor electrolytes and replace as indicated per ICU electrolyte replacement protocol. ID: Mild reactive leukocytosis. Monitor for evidence of infection. HEME: Follow-up CBC ENDO: Mild hyperglycemia. Monitor glucose and use low-dose insulin sliding scale if indicated. PROPH: SCDs for DVT prophylaxis. Protonix 40 mg IV daily for stress ulcer prophylaxis and history of GERD and esophagitis. ACCESS: Peripheral IV providing adequate access at this time. Patient and updated at bedside. Discussed with bedside RN. Level 3. Continue ICU care Jennifer Booth MD Apr 18, 2016 10:49
--- NOTE | 2016-04-18 12:00 | RADRPT ---
EXAM DATE/TIME: 04/18/2016 07:32 [facility] COMPARISON: No previous studies available for comparison. INDICATIONS : Subarachnoid hemorrhage. MEDICAL HISTORY : Hypertension. Gastroesophageal reflux disease. Migraines. Hyperlipidemia. SURGICAL HISTORY : Right kidney cryo ablasion. Right foot surgery. ENCOUNTER: Initial ACUITY: 2 days PAIN SCORE: 4/10 LOCATION: Bilateral cranial TIME -AVERAGED MAXIMAL VELOCITIES: MCA (1): Right: 76.6 Left: 87.7 MCA (2): Right: 52.1 Left: 58.5 ANNE MARIE (1): Right: 56.9 Left: 41.3 ANNE MARIE (2): Right: 32.2 Left: 21.6 SHOT HOLE DRILLER (1): Right: 49.1 Left: 57.7 SHOT HOLE DRILLER (2): Right: 36.7 Left: 45.1 Opthalmic Artery: Right: 15.3 Left: 13.2 VERTEBRAL: Right: 60.0 antegrade Left: 49.7 antegrade BASILAR: 55.1 ICA: Right: 27.1 Left: 30.2 Lindegaard Ratio: Right: 2.8 Left: 2.9 Matthews Ratio: Right: 2.1 Left: 1.4 FINDINGS: Examination performed at bedside. Real-time ultrasound with the assistance of color and spectral Dop pler was utilized to evaluate the intracerebral circulation. Time-averaged maximal velocities are ca lculated in cm/s. Doppler velocities are within the range of normal bilaterally. Lindegard ratios are also normal. CONCLUSION: 1. Normal velocities and Lindegard ratios without Doppler findings of significant vasospasm 2. This will serve as the baseline examination. Joey Concepcion MD on April 18, 2016 at 11:52 Board Certified Radiologist. This report was verified electronically.
[2016-04-18] MEDS: ACETAMINOPHEN/HYDROcodone 325 MG/5 MG TAB PO PRN ×2 (12:01→20:29)
[2016-04-19] VITALS (20 sets, daily range): BP systolic 93–132; BP diastolic 53–78; PULSE 57–79; RESP 11–20; TEMP 97.8–99.2; O2SAT 92–100
[2016-04-19] MEDS: HYDROmorphone HCL PF 1 MG/ML VIAL IV PUSH PRN ×5 (00:02→22:47)
[2016-04-19] MEDS: niMODipine 30 MG CAP PO SCH ×6 (04:17→22:35)
[2016-04-19] MEDS: ACETAMINOPHEN 1000 MG/100 ML VIAL IV SCH ×3 (04:17→20:09)
[2016-04-19] MEDS: ONDANSETRON ODT 4 MG TAB PO SCH ×4 (04:17→17:03)
[2016-04-19] MEDS: CHLORHEXIDINE GLUCONATE 2 % 1 PACK (2 CLOTHS) TOP SCH (04:18)
[2016-04-19 06:06] LABS: AUTOMATED NEUTROPHIL # 4.2 TH/MM3 (1.8-7.7); BASOPHIL % 0.6 % (0.0-2.0); EOSINOPHIL # 0.3 TH/MM3 (0-0.4); EOSINOPHIL % 3.4 % (0.0-4.0); HEMATOCRIT 36.5 % (35.0-46.0); HEMO FLAGS DIFF FINAL; LYMPH % 37.9 % (9.0-44.0); LYMPHOCYTE # 3.1 TH/MM3 (1.0-4.8); MEAN CELL VOLUME 88.2 FL (80.0-100.0); MEAN CORPUSCULAR HEMOGLOBIN 29.1 PG (27.0-34.0); MONO % 6.7 % (0.0-8.0); NEUT % 51.4 % (16.0-70.0); PLATELET COUNT 283 TH/MM3 (150-450); RED BLOOD COUNT 4.14 MIL/MM3 (4.00-5.30); RED CELL DISTRIBUTION WIDTH 13.7 % (11.6-17.2); WHITE BLOOD COUNT 8.1 TH/MM3 (4.0-11.0)
[2016-04-19 06:27] LABS: ALKALINE PHOSPHATASE 64 U/L (45-117); ALT (GPT) 17 U/L (10-53); ANION GAP 6 MEQ/L (5-15); AST (GOT) 13 U/L (15-37); BICARBONATE 27.9 MEQ/L (21.0-32.0); BLOOD UREA NITROGEN 9 MG/DL (7-18); CHLORIDE 107 MEQ/L (98-107); GLOMERULAR FILTRATION RATE 87 ML/MIN (>89); MAGNESIUM 2.1 MG/DL (1.5-2.5); POTASSIUM 3.7 MEQ/L (3.5-5.1); SODIUM (NA) 141 MEQ/L (136-145); TOTAL BILIRUBIN ADULT 0.2 MG/DL (0.2-1.0)
[2016-04-19] MEDS: SODIUM CHLOR 0.9% 1000 ML INJ 1,000 ML IV SCH ×2 (08:23→17:04)
[2016-04-19] MEDS: PANTOPRAZOLE SODIUM 40 MG VIAL IVP SCH (08:23)
[2016-04-19] MEDS: EZETIMIBE 10 MG TAB PO SCH (08:23)
[2016-04-19] MEDS: SODIUM CHLORIDE 0.9% FLUSH 5 ML FLUSH IV FLUSH SCH ×2 (08:23→19:46)
--- NOTE | 2016-04-19 10:49 | RADRPT ---
EXAM DATE/TIME: 04/19/2016 07:53 [facility] COMPARISON: US TRANSCRANIAL DOPPLER COMPLETE, April 18, 2016, 7:32. INDICATIONS : Subarachnoid hemorrhage MEDICAL HISTORY : Hypertension. Gastroesophageal reflux disease. Migraine. SURGICAL HISTORY : Right kidney cryo ablation. Right foot surgery. ENCOUNTER: Subsequent ACUITY: 3 days PAIN SCORE: 0/10 LOCATION: cranial TIME -AVERAGED MAXIMAL VELOCITIES: MCA (1): Right: 69.7 Left: 78.3 MCA (2): Right: 58.7 Left: 45.1 ANNE MARIE (1): Right: 52.2 Left: 45.2 ANNE MARIE (2): Right: 29.0 Left: 22.1 DIGITAL DEVELOPER (1): Right: 57.1 Left: 65.1 DIGITAL DEVELOPER (2): Right: 26.3 Left: 36.1 Opthalmic Artery: Right: Not scanned Left: Not scanned VERTEBRAL: Right: 49.1 antegrade Left: 44.8 antegrade BASILAR: 64.3 ICA: Right: 28.8 Left: 30.2 Lindegaard Ratio: Right: 2.4 Left: 2.6 Matthews Ratio: Right: 1.8 Left: 1.5 FINDINGS: Examination performed at bedside. Real-time ultrasound with the assistance of color and spectral Dop pler was utilized to evaluate the intracerebral circulation. Time-averaged maximal velocities are ca lculated in cm/s. Absolute velocities in Lindegard ratios remain within the range of normal. No significant change from prior. CONCLUSION: Stable exam. No Doppler findings significant vasospasm. Joey Concepcion MD on April 19, 2016 at 10:44 Board Certified Radiologist. This report was verified electronically.
--- NOTE | 2016-04-19 11:01 | HHI.NSPN ---
Subjective History 56 yr old day 1 after perimesencephalic bleed, still has nausea and headaches but has no new neurologic deficit. CTA, MRA of the neck were performed. No dissection or aneurysm is seen so far. GCS 15. 04/19/16 She remains awake and with no focal deficit. IVF hydration is continued. TCDs shows no vasospams so far Vitals . Vital Signs Date Time Temp Pulse Resp B/P Pulse Ox O2 Delivery O2 Flow Rate FiO2 04/19/16 10:00 62 04/19/16 08:10 100 Nasal Cannula 2.00 04/19/16 08:00 65 04/19/16 08:00 98.6 65 13 119/60 100 04/19/16 07:00 99 Nasal Cannula 2.00 04/19/16 06:00 60 04/19/16 04:00 58 04/19/16 04:00 99.1 58 16 117/67 100 04/19/16 02:00 57 04/19/16 00:00 97.8 62 20 129/62 92 04/19/16 00:00 62 04/18/16 22:00 64 04/18/16 20:28 96 21 04/18/16 20:00 70 04/18/16 20:00 98.6 70 21 108/56 95 04/18/16 19:00 95 Room Air 04/18/16 18:00 81 04/18/16 16:00 62 04/18/16 16:00 97.9 62 28 112/56 98 04/18/16 14:00 76 04/18/16 12:00 97.9 70 28 112/56 98 04/18/16 12:00 70 04/18/16 04/18/16 04/19/16 15:00 23:00 07:00 Intake Total 809 ml 984 ml 1107 ml Balance 809 ml 984 ml 1107 ml Physical Exam Head Head: Atraumatic Eyes Eyes: Pupils Equal Neuro Mental Status: Awake, Oriented x 3 Pupils: Reactive Bilaterally Speech: Clear Nataliya Coma Scale Best Eye Openin - Spontaneous Best Verbal: 5 - Oriented Best Motor: 6 - Obeys Sensation: Intact Cardiac Cardiac: Regular Rate & Rhythm Respiratory Respiratory: CTA Gastrointestinal Gastrointestinal: Soft Bowel Sounds: Present Genitourinary Genitourinary: Good Urine Output Musculoskeletal Musculoskeletal: Moves all extrem with 5/5 strength (no pronator drift) Extremities Upper Extremities Deltoid Bicep Tricep HI W. Ext Right Left Lower Extremeties Ilio Quad Plantar Dorsi EHL Right Left Extremities Edema: SCDs Objective Labs Laboratory Tests 04/19/16 05:07 Laboratory Tests Test 04/18/16 04/19/16 11:37 05:07 Magnesium Level 2.3 MG/DL 2.1 MG/DL Sodium Level 141 MEQ/L Potassium Level 3.7 MEQ/L Chloride Level 107 MEQ/L Carbon Dioxide Level 27.9 MEQ/L Anion Gap 6 MEQ/L Blood Urea Nitrogen 9 MG/DL Creatinine 0.70 MG/DL Estimat Glomerular Filtration 87 ML/MIN Rate Random Glucose 99 MG/DL Calcium Level 8.0 MG/DL Total Bilirubin 0.2 MG/DL Aspartate Amino Transf 13 U/L (AST/SGOT) Alanine Aminotransferase 17 U/L (ALT/SGPT) Alkaline Phosphatase 64 U/L Total Protein 6.2 GM/DL Albumin 3.0 GM/DL Imaging Remarks Last Impressions Transcranial Doppler Study Complete 04/19/16 0730 Signed Impressions: Service Date/Time: Tuesday, April 19, 2016 07:53 - CONCLUSION: Stable exam. No Doppler findings significant vasospasm. Joey Concepcion MD Head CT 04/17/161656 Signed Impressions: Service Date/Time: Sunday, April 17, 2016 17:48 - CONCLUSION: Subarachnoid hemorrhage in the basilar cisterns and anterior to the brainstem concerning for a leaking aneurysm. Recommend further evaluation with CTA brain. findings called to emergency department physician. Juan Robertson MD Cervical Spine CT [id number]/17/161656 Signed Impressions: Service Date/Time: Sunday, April 17, 2016 17:48 - CONCLUSION: 1. Moderate degenerative change of the lower cervical spine. No acute findings. Juan Robertson MD Neck Magnetic Resonance Angiography 04/17/16 0000 Signed Impressions: Service Date/Time: Sunday, April 17, 2016 20:39 - CONCLUSION: 1. Mild plaque at the carotid bifurcations bilaterally without hemodynamically significant stenosis. Remainder of exam unremarkable. Juan Robertson MD Head Magnetic Resonance Angiography 04/17/16 Signed Impressions: Service Date/Time: Sunday, April 17, 2016 20:39 - CONCLUSION: Normal examination for a patient of this age. Juan Robertson MD Head CTA 04/17/16 Signed Impressions: Service Date/Time: Sunday, April 17, 2016 19:08 - CONCLUSION: 1. No discrete aneurysm is identified on CTA brain. There does appear be some mild vasospasm. Juan Robertson MD Brain MRI 04/17/16 Signed Impressions: Service Date/Time: Sunday, April 17, 2016 20:39 - CONCLUSION: 1. Subarachnoid hemorrhage predominantly around the brainstem. No recent infarction, mass effect or shift. No hydrocephalus. Juan Robertson MD Assessment & Plan Diagnosis: (1) Subarachnoid bleed Plan: Perimesencephalic hemorrhage with no focal deficit, 2-3mm clot in the ambien cistern with blood seen down to C2. Plan CTA, MRI/MRA to rule out a dissection of the VAs or a small aneurysm of the posterior circulation. TCDs, nimotop, keppra, DVT and PUD prophylaxis ordered per protocol. Will control the BP to keep the SBP 120-140 04/18/16 Benign perimesencephalic SAH so far but TCDs are pending. We will continue supportive care, seizure prophylaxis, BP control. nimodipine and start OT/PT. Plan cerebral angiogram when some of the blood resolves. 04/19/16 TCDs still wnl, she is stable for cerebral angiogram. (2) HTN (hypertension) Plan: On nimodipine and labetolol PRN. Brock Gutierrez Apr 19, 2016 11:01
[2016-04-19] MEDS: levETIRAcetam INJ 500 MG in SODIUM CHLORIDE 0.9% INJ 100 ML IV SCH ×2 (12:17→19:45)
[2016-04-19] MEDS ORDERED: LORazepam 2 MG/ML VIAL ONE (13:03)
[2016-04-19] MEDS ORDERED: fentaNYL CITRATE 250 MCG/5 ML AMP ONE (13:39)
[2016-04-19] MEDS ORDERED: IODIXANOL 320 MG/ML 50 ML VIAL (for RAD SPEC) I-ARTERIAL ONE (14:37)
--- NOTE | 2016-04-19 14:51 | PD.RAD ---
Post Procedure Progress Note Pre Procedure Diagnosis: (1) Subarachnoid bleed (2) HTN (hypertension) Post Procedure Diagnosis: (1) Subarachnoid bleed (2) HTN (hypertension) Procedure Date: Apr 19, 2016 Supervising Radiologist: Joey Concepcion Proceduralist/Assist: Nadia Fermin, RT(R)(CV), Jaimie Blancas RT(R) Anesthesia: Local, Analgesia, Conscious Sedation Plan of Activity Patient to Unit: Critical Care Patient Condition: Good See PACS Report for procedural detail/treatment Vascular-Arterial Procedure Procedure 1 Procedure Site: Cerebral Procedure(s): Angiogram Access Access Site(s): Right Femoral Artery Closure Site(s): Right hemostasis patch Findings: No aneurysm found on 3 vessel angio (bilateral carotids and left vert) Joey Concepcion MD Apr 19, 2016 14:51
[2016-04-19] MEDS: ACETAMINOPHEN/HYDROcodone 325 MG/5 MG TAB PO PRN (19:45)
[2016-04-19] MEDS: ONDANSETRON HCL 4 MG/2 ML VIAL IV PRN (19:45)
[2016-04-19] MEDS ORDERED: levETIRAcetam INJ 500 MG in SODIUM CHLORIDE 0.9% INJ 100 ML IV SCH (21:00)
[2016-04-20] VITALS (13 sets, daily range): BP systolic 89–159; BP diastolic 51–85; PULSE 62–84; RESP 12–21; TEMP 98–99; O2SAT 91–98
[2016-04-20] MEDS: SODIUM CHLOR 0.9% 1000 ML INJ 1,000 ML IV SCH (00:06)
[2016-04-20] MEDS: niMODipine 30 MG CAP PO SCH ×5 (03:16→20:42)
[2016-04-20] MEDS: CHLORHEXIDINE GLUCONATE 2 % 1 PACK (2 CLOTHS) TOP SCH (03:16)
[2016-04-20] MEDS: HYDROmorphone HCL PF 1 MG/ML VIAL IV PUSH PRN ×5 (03:46→22:41)
[2016-04-20] MEDS: ACETAMINOPHEN 1000 MG/100 ML VIAL IV SCH ×3 (04:03→22:41)
[2016-04-20 04:23] LABS: BICARBONATE 27.7 MEQ/L (21.0-32.0); POTASSIUM 3.6 MEQ/L (3.5-5.1)
--- NOTE | 2016-04-20 07:57 | HHI.NSPN ---
Subjective History 56 yr old day 1 after perimesencephalic bleed, still has nausea and headaches but has no new neurologic deficit. CTA, MRA of the neck were performed. No dissection or aneurysm is seen so far. GCS 15. 04/19/16 She remains awake and with no focal deficit. IVF hydration is continued. TCDs shows no vasospams so far 04/20/16 Cerebral angiogram was negative for aneurysm. Benign perimesencephalic SAH is suspected. Headaches are improving. visual marin remain good. TCDs are continued. Rehab services are following to establish rehab needs. Vitals . Vital Signs Date Time Temp Pulse Resp B/P Pulse Ox O2 Delivery O2 Flow Rate FiO2 04/20/16 06:00 62 04/20/16 04:00 66 04/20/16 04:00 98.8 66 14 109/59 95 04/20/16 02:00 67 04/20/16 00:00 99.0 64 12 89/51 96 04/20/16 00:00 64 04/19/16 22:00 66 04/19/16 20:00 68 04/19/16 20:00 98.6 68 14 98/56 100 04/19/16 19:00 96 Nasal Cannula 2.00 04/19/16 18:34 99.1 78 13 120/61 93 04/19/16 18:00 71 04/19/16 17:34 99.1 73 19 114/63 99 04/19/16 17:04 99.2 72 17 128/63 98 04/19/16 16:34 98.8 68 11 111/57 100 04/19/16 16:00 98.9 67 14 118/58 100 04/19/16 16:00 67 04/19/16 16:00 98.9 67 14 118/58 100 04/19/16 15:34 99.1 68 15 93/53 100 04/19/16 15:19 99.1 72 15 95/56 100 04/19/16 15:04 99.1 79 15 124/78 100 04/19/16 12:00 75 04/19/16 12:00 98.8 75 16 132/61 98 2/14/17 10:00 62 04/19/16 08:10 100 Nasal Cannula 2.00 04/19/16 08:00 65 04/19/16 08:00 98.6 65 13 119/60 100 04/19/16 04/19/16 04/20/16 15:00 23:00 07:00 Intake Total 1112 ml 800 ml 1047 ml Balance 1112 ml 800 ml 1047 ml Physical Exam Head Head: Atraumatic Eyes Eyes: Pupils Equal Neuro Mental Status: Awake, Oriented x 3 Pupils: Reactive Bilaterally Face: Symmetric Speech: Clear Nataliya Coma Scale Best Eye Openin - Spontaneous Best Verbal: 5 - Oriented Best Motor: 6 - Obeys Sensation: Intact Cardiac Cardiac: Regular Rate & Rhythm Respiratory Respiratory: CTA Gastrointestinal Gastrointestinal: Soft Musculoskeletal Musculoskeletal: Moves all extrem with 5/5 strength Extremities Upper Extremities Deltoid Bicep Tricep HI W. Ext Right Left Lower Extremeties Ilio Quad Plantar Dorsi EHL Right Left Dermatologic Dermatologic: Skin Intact Extremities Edema: SCDs Objective Labs Laboratory Tests 04/20/16 03:46 Laboratory Tests Test 04/20/16 03:46 Sodium Level 143 MEQ/L Potassium Level 3.6 MEQ/L Chloride Level 106 MEQ/L Carbon Dioxide Level 27.7 MEQ/L Anion Gap 9 MEQ/L Blood Urea Nitrogen 8 MG/DL Creatinine 0.68 MG/DL Estimat Glomerular Filtration 90 ML/MIN Rate Random Glucose 87 MG/DL Calcium Level 8.3 MG/DL Phosphorus Level 3.5 MG/DL Magnesium Level 2.0 MG/DL Imaging Remarks Last Impressions Transcranial Doppler Study Complete 04/19/16 0730 Signed Impressions: Service Date/Time: Tuesday, April 19, 2016 07:53 - CONCLUSION: Stable exam. No Doppler findings significant vasospasm. Joey Concepcion MD Head CT 04/17/161656 Signed Impressions: Service Date/Time: Sunday, April 17, 2016 17:48 - CONCLUSION: Subarachnoid hemorrhage in the basilar cisterns and anterior to the brainstem concerning for a leaking aneurysm. Recommend further evaluation with CTA brain. findings called to emergency department physician. Juan Robertson MD Cervical Spine CT 04/17/161656 Signed Impressions: Service Date/Time: Sunday, April 17, 2016 17:48 - CONCLUSION: 1. Moderate degenerative change of the lower cervical spine. No acute findings. Juan Robertson MD Neck Magnetic Resonance Angiography 04/17/16 Signed Impressions: Service Date/Time: Sunday, April 17, 2016 20:39 - CONCLUSION: 1. Mild plaque at the carotid bifurcations bilaterally without hemodynamically significant stenosis. Remainder of exam unremarkable. Juan Robertson MD Head Magnetic Resonance Angiography 04/17/16 Signed Impressions: Service Date/Time: Sunday, April 17, 2016 20:39 - CONCLUSION: Normal examination for a patient of this age. Juan Robertson MD Head CTA 04/17/16 Signed Impressions: Service Date/Time: Sunday, April 17, 2016 19:08 - CONCLUSION: 1. No discrete aneurysm is identified on CTA brain. There does appear be some mild vasospasm. Juan Robertson MD Brain MRI 04/17/16 Signed Impressions: Service Date/Time: Sunday, April 17, 2016 20:39 - CONCLUSION: 1. Subarachnoid hemorrhage predominantly around the brainstem. No recent infarction, mass effect or shift. No hydrocephalus. Juan Robertson MD Assessment & Plan Diagnosis: (1) Subarachnoid bleed Plan: Perimesencephalic hemorrhage with no focal deficit, 2-3mm clot in the ambien cistern with blood seen down to C2. Plan CTA, MRI/MRA to rule out a dissection of the VAs or a small aneurysm of the posterior circulation. TCDs, nimotop, keppra, DVT and PUD prophylaxis ordered per protocol. Will control the BP to keep the SBP 120-140 04/18/16 Benign perimesencephalic SAH so far but TCDs are pending. We will continue supportive care, seizure prophylaxis, BP control. nimodipine and start OT/PT. Plan cerebral angiogram when some of the blood resolves. 04/19/16 TCDs still wnl, she is stable for cerebral angiogram. 04/20/16 Negative cerebral angiogram, oral intake and rehab participation is encouraged as tolerated. DVT prophylaxis and seizure prophylaxis is continued. (2) HTN (hypertension) Plan: On nimodipine and labetolol PRN. Brock Gutierrez Apr 20, 2016 07:57
[2016-04-20] MEDS: levETIRAcetam 500 MG TAB PO SCH ×2 (09:00→20:43)
[2016-04-20] MEDS: EZETIMIBE 10 MG TAB PO SCH (09:00)
[2016-04-20] MEDS: SODIUM CHLORIDE 0.9% FLUSH 5 ML FLUSH IV FLUSH SCH ×2 (09:00→20:43)
[2016-04-20] MEDS: PANTOPRAZOLE SODIUM 40 MG VIAL IVP SCH (09:00)
[2016-04-20] MEDS: ONDANSETRON HCL 4 MG/2 ML VIAL IV PRN ×2 (09:13→13:41)
--- NOTE | 2016-04-20 09:47 | HHI.CCPN ---
Subjective Remarks/Hospital Course Note for 04/19/16: 56 yo WF with PMH of hyperlipidemia, migraine headaches who presented to [facility] today for sudden onset of headache 10/10 severity, bilateral jaw pain, neck pain , nausea, and photophobia that started after getting a haircut. CT brain demonstrated SAH in basilar cisterns concerning for aneurysmal leak. Neurosurgery has seen the patient and requested admission to critical care medicine service. Coags are normal. She is nauseated and continues to complain of headache. Denies weakness, parasthesias, seizures, SOB. SUBJ Lying in bed. complaints of head ache and nausea, CTA brain, MRA brain and neck negative for aneurysm. BP control adequate. Remains on Nimotop 04/19: Headache persists. TCDs no spasm. Objective Vital Signs Date Time Temp Pulse Resp B/P Pulse Ox O2 Delivery O2 Flow Rate FiO2 04/20/16 07:54 91 21 04/20/16 06:00 62 04/20/16 04:00 98.8 14 109/59 04/19/16 19:00 Nasal Cannula 2.00 Intake and Output 04/19/16 04/19/16 04/20/16 08:00 16:00 00:00 Intake Total 1107 ml 1112 ml 800 ml Balance 1107 ml 1112 ml 800 ml Result Diagram: 04/19/16 0507 04/20/16 0346 Objective Remarks GENERAL: Well-nourished, well-developed patient who is laying in ISC bed, in darkened room, laying still. SKIN: Warm and dry. HEAD: Atraumatic. Normocephalic. EYES: Pupils 2 mm and sluggishly reactive bilaterally. No scleral icterus. No injection or drainage. ENT: No nasal bleeding or discharge. Mucous membranes pink and moist. NECK: Trachea midline. No JVD. CARDIOVASCULAR: Regular rate and rhythm. No murmurs rubs or gallops. RESPIRATORY: Clear to auscultation. Breath sounds equal bilaterally. No wheezes or crackles. GASTROINTESTINAL: Abdomen soft, non-tender, nondistended. Bowel sounds present. MUSCULOSKELETAL: Extremities without clubbing, cyanosis, or edema. NEUROLOGICAL: Awake and alert, oriented. No obvious cranial nerve deficits. Five out of 5 muscle strength in the arms and legs. Sensation intact. No pronator drift. Normal speech. A/P Assessment and Plan NEURO: Acute spontaneous subarachnoid hemorrhage, [place] grade 2 Nimodipine 60 mg by mouth every 4 hours. Cardene if needed to maintain systolic blood pressure 120-140 Maintain normothermia. Ofirmev 1 g IV every 8 hours. Avoid hypovolemia, hyponatremia Dilaudid 0.5-1 mg IV every 3 hours when necessary pain. CTA brain, MRA brain and neck shows no aneurysm. There is reportedly mild vasospasm. Neurocheck q1 hour, Watch closely for worsening vasospasm No cerebrovascular abnormality. Neurosurgery following, Dr. Gutierrez. Await formal angiogram RESP: Nasal cannula wean as tolerated CV: Hyperlipidemia Statin intolerance (myalgias) Continue Zetia 10 mg by mouth daily GI: GERD Nausea Nothing by mouth, Diet if patient can tolerate, and is nausea improved Zofran 4 mg IV every 6 hours when necessary nausea Phenergan 25 mg IM every 6 hours Protonix 40 g IV daily FEN/RENAL: Normal renal function. Monitor intake and output. Monitor electrolytes and replace as indicated per ICU electrolyte replacement protocol. ID: Mild reactive leukocytosis. Monitor for evidence of infection. HEME: Follow-up CBC ENDO: Mild hyperglycemia. Monitor glucose and use low-dose insulin sliding scale if indicated. PROPH: SCDs for DVT prophylaxis. Protonix 40 mg IV daily for stress ulcer prophylaxis and history of GERD and esophagitis. ACCESS: Peripheral IV providing adequate access at this time. Overall impression: Concerning subarachnoid blood and headache, no aneurysm identified. Thierry Leon MD Apr 20, 2016 09:46
--- NOTE | 2016-04-20 09:50 | HHI.CCPN ---
Subjective Remarks/Hospital Course Note for 04/20/16: 56 yo WF with PMH of hyperlipidemia, migraine headaches who presented to [facility] [place] [facility] today for sudden onset of headache 10/10 severity, bilateral jaw pain, neck pain , nausea, and photophobia that started after getting a haircut. CT brain demonstrated SAH in basilar cisterns concerning for aneurysmal leak. Neurosurgery has seen the patient and requested admission to critical care medicine service. Coags are normal. She is nauseated and continues to complain of headache. Denies weakness, parasthesias, seizures, SOB. SUBJ Lying in bed. complaints of head ache and nausea, CTA brain, MRA brain and neck negative for aneurysm. BP control adequate. Remains on Nimotop 04/19: Headache persists. TCDs no spasm. 04/20: No change. BP control acceptable. Objective Vital Signs Date Time Temp Pulse Resp B/P Pulse Ox O2 Delivery O2 Flow Rate FiO2 04/20/16 07:54 91 21 04/20/16 06:00 62 04/20/16 04:00 98.8 14 109/59 04/19/16 19:00 Nasal Cannula 2.00 Intake and Output 04/19/16 04/19/16 04/20/16 08:00 16:00 00:00 Intake Total 1107 ml 1112 ml 800 ml Balance 1107 ml 1112 ml 800 ml Result Diagram: 04/19/16 0507 04/20/16 0346 Objective Remarks GENERAL: Calm SKIN: Warm, dry. HEAD: Atraumatic. Normocephalic. EYES: Pupils 2 mm, reactive bilaterally. NECK: Trachea midline. Airway widely patent. CARDIOVASCULAR: Regular rate and rhythm. No murmurs rubs or gallops. No JVD. RESPIRATORY: Clear to auscultation. Breath sounds equal bilaterally. No wheezes or crackles. Comfortable pattern. GASTROINTESTINAL: Abdomen soft, non-tender, nondistended. Bowel sounds present. MUSCULOSKELETAL: Extremities without clubbing, cyanosis, or edema. Warm, well perfused. NEUROLOGICAL: Awake and alert, oriented. No obvious cranial nerve deficits. Five out of 5 muscle strength in the arms and legs. Sensation intact. No pronator drift. Normal speech. A/P Assessment and Plan NEURO: Acute spontaneous subarachnoid hemorrhage, [place] Almeida grade 2 Nimodipine 60 mg by mouth every 4 hours. Cardene if needed to maintain systolic blood pressure 120-140 Maintain normothermia. Ofirmev 1 g IV every 8 hours. Avoid hypovolemia, hyponatremia Dilaudid 0.5-1 mg IV every 3 hours when necessary pain. CTA brain, MRA brain and neck shows no aneurysm. There is reportedly mild vasospasm. Neurocheck q1 hour, Watch closely for worsening vasospasm No cerebrovascular abnormality. Neurosurgery following, Dr. Gutierrez. Await formal angiogram RESP: Nasal cannula wean as tolerated CV: Hyperlipidemia Statin intolerance (myalgias) Continue Zetia 10 mg by mouth daily GI: GERD Nausea Nothing by mouth, Diet if patient can tolerate, and is nausea improved Zofran 4 mg IV every 6 hours when necessary nausea Phenergan 25 mg IM every 6 hours Protonix 40 g IV daily FEN/RENAL: Normal renal function. Monitor intake and output. Monitor electrolytes and replace as indicated per ICU electrolyte replacement protocol. ID: Mild reactive leukocytosis. Monitor for evidence of infection. HEME: Follow-up CBC ENDO: Mild hyperglycemia. Monitor glucose and use low-dose insulin sliding scale if indicated. PROPH: SCDs for DVT prophylaxis. Protonix 40 mg IV daily for stress ulcer prophylaxis and history of GERD and esophagitis. ACCESS: Peripheral IV providing adequate access at this time. Overall impression: Concerning subarachnoid blood and headache, no aneurysm identified. Follow clinical exam and TCDs. Well hydrated. Thierry Leon MD Apr 20, 2016 09:50
--- NOTE | 2016-04-20 13:32 | RADRPT ---
EXAM DATE/TIME: 04/20/2016 09:23 [facility] COMPARISON: US TRANSCRANIAL DOPPLER COMPLETE, April 19, 2016, 7:53. INDICATIONS : Subarachnoid hemorrhage. MEDICAL HISTORY : Gastroesophageal reflux disease. Hypertension. Migraine. SURGICAL HISTORY : Right kidney cryo ablation. Right foot surgery. ENCOUNTER: Subsequent ACUITY: 3 days PAIN SCORE: Nonresponsive. LOCATION: cranial TIME -AVERAGED MAXIMAL VELOCITIES: MCA (1): Right: 89.6 Left: 85.0 MCA (2): Right: 57.5 Left: 50.1 ANNE MARIE (1): Right: 66.1 Left: 51.8 ANNE MARIE (2): Right: 32.5 Left: 23.9 CROP DUSTER HELPER (1): Right: 64.2 Left: 52.3 CROP DUSTER HELPER (2): Right: 48.6 Left: 53.0 Opthalmic Artery: Right: Not scanned. Left: Not scanned. VERTEBRAL: Right: 72.7 antegrade Left: 68.8 antegrade BASILAR: 73.9 ICA: Right: 36.5 Left: 36.2 [place] Ratio: Right: 2.4 Left: 2.3 Matthews Ratio: Right: 1.8 Left: 1.4 FINDINGS: Examination performed at bedside. Real-time ultrasound with the assistance of color and spectral Dop pler was utilized to evaluate the intracerebral circulation. Time-averaged maximal velocities are ca lculated in cm/s. CONCLUSION: 1. Stable examination. No findings to indicate significant venous spasm. Joseluis Singh MD on April 20, 2016 at 13:28 Board Certified Radiologist. This report was verified electronically.
[2016-04-21] VITALS (13 sets, daily range): BP systolic 105–137; BP diastolic 55–69; PULSE 61–84; RESP 10–21; TEMP 98–98.5; O2SAT 93–99
[2016-04-21] MEDS: SODIUM CHLOR 0.9% 1000 ML INJ 1,000 ML IV SCH ×2 (02:07→11:44)
[2016-04-21] MEDS: CHLORHEXIDINE GLUCONATE 2 % 1 PACK (2 CLOTHS) TOP SCH (04:00)
[2016-04-21] MEDS: niMODipine 30 MG CAP PO SCH ×6 (04:20→21:16)
[2016-04-21] MEDS: HYDROmorphone HCL PF 1 MG/ML VIAL IV PUSH PRN (04:20)
[2016-04-21 04:38] LABS: BICARBONATE 31.1 MEQ/L (21.0-32.0); POTASSIUM 3.6 MEQ/L (3.5-5.1)
[2016-04-21] MEDS: ACETAMINOPHEN 1000 MG/100 ML VIAL IV SCH (05:59)
[2016-04-21] MEDS: ONDANSETRON HCL 4 MG/2 ML VIAL IV PRN ×2 (06:22→10:48)
[2016-04-21] MEDS: ACETAMINOPHEN/HYDROcodone 325 MG/5 MG TAB PO PRN ×2 (07:21→10:48)
--- NOTE | 2016-04-21 07:30 | HHI.NSPN ---
Subjective History 56 yr old day 1 after perimesencephalic bleed, still has nausea and headaches but has no new neurologic deficit. CTA, MRA of the neck were performed. No dissection or aneurysm is seen so far. GCS 15. 04/19/16 She remains awake and with no focal deficit. IVF hydration is continued. TCDs shows no vasospams so far 04/20/16 Cerebral angiogram was negative for aneurysm. Benign perimesencephalic SAH is suspected. Headaches are improving. visual marin remain good. TCDs are continued. Rehab services are following to establish rehab needs. 04/21/16 She is nauseous but alert and awake. The nausea is as bad as the headache. Vitals . Vital Signs Date Time Temp Pulse Resp B/P Pulse Ox O2 Delivery O2 Flow Rate FiO2 04/21/16 06:29 15 04/21/16 06:00 68 04/21/16 04:50 12 04/21/16 04:00 98.5 81 10 125/69 96 04/21/16 04:00 81 04/21/16 02:00 68 04/21/16 00:00 98.4 64 12 105/55 93 04/21/16 00:00 64 04/20/16 22:43 95 04/20/16 22:00 70 04/20/16 20:00 98.4 84 21 142/67 95 04/20/16 20:00 84 04/20/16 19:00 Room Air 04/20/16 18:00 73 04/20/16 16:00 75 04/20/16 16:00 98.0 78 20 104/65 96 04/20/16 14:00 78 04/20/16 12:00 98.0 75 15 104/58 98 04/20/16 08:00 72 04/20/16 08:00 98.0 67 15 159/85 96 04/20/16 07:54 91 21 04/20/16 04/20/16 04/21/16 15:00 23:00 07:00 Intake Total 1130 ml 470 ml Balance 1130 ml 470 ml Physical Exam Head Head: Abrasions Eyes Eyes: Pupils Equal Neuro Mental Status: Awake, Alert, Oriented x 3 Pupils: Reactive Bilaterally Speech: Clear Nataliya Coma Scale Best Eye Openin - Spontaneous Best Verbal: 5 - Oriented Best Motor: 6 - Obeys Sensation: Intact Cardiac Cardiac: Regular Rate & Rhythm Gastrointestinal Gastrointestinal: Soft Genitourinary Genitourinary: Good Urine Output Musculoskeletal Musculoskeletal: Moves all extrem with 5/5 strength Extremities Upper Extremities Deltoid Bicep Tricep HI W. Ext Right Left Lower Extremeties Ilio Quad Plantar Dorsi EHL Right Left Extremities Edema: SCDs Objective Labs Laboratory Tests 04/21/16 03:50 Laboratory Tests Test 04/21/16 03:50 Sodium Level 142 MEQ/L Potassium Level 3.6 MEQ/L Chloride Level 105 MEQ/L Carbon Dioxide Level 31.1 MEQ/L Anion Gap 6 MEQ/L Blood Urea Nitrogen 10 MG/DL Creatinine 0.66 MG/DL Estimat Glomerular Filtration 93 ML/MIN Rate Random Glucose 99 MG/DL Calcium Level 8.7 MG/DL Imaging Remarks Last Impressions Transcranial Doppler Study Complete 04/20/16 0730 Signed Impressions: Service Date/Time: Wednesday, April 20, 2016 09:23 - CONCLUSION: 1. Stable examination. No findings to indicate significant venous spasm. Joseluis Singh MD Head CT [id number]/[id number] Signed Impressions: Service Date/Time: Sunday, April 17, 2016 17:48 - CONCLUSION: Subarachnoid hemorrhage in the basilar cisterns and anterior to the brainstem concerning for a leaking aneurysm. Recommend further evaluation with CTA brain. findings called to emergency department physician. Juan Robertson MD Cervical Spine CT [id number] Signed Impressions: Service Date/Time: Sunday, April 17, 2016 17:48 - CONCLUSION: 1. Moderate degenerative change of the lower cervical spine. No acute findings. Juan Robertson MD Neck Magnetic Resonance Angiography 04/17/16 Signed Impressions: Service Date/Time: Sunday, April 17, 2016 20:39 - CONCLUSION: 1. Mild plaque at the carotid bifurcations bilaterally without hemodynamically significant stenosis. Remainder of exam unremarkable. Juan Robertson MD Head Magnetic Resonance Angiography 04/17/16 Signed Impressions: Service Date/Time: Sunday, April 17, 2016 20:39 - CONCLUSION: Normal examination for a patient of this age. Juan Robertson MD Head CTA 2/12/17 0000 Signed Impressions: Service Date/Time: Sunday, April 17, 2016 19:08 - CONCLUSION: 1. No discrete aneurysm is identified on CTA brain. There does appear be some mild vasospasm. Juan Robertson MD Brain MRI 04/17/16 0000 Signed Impressions: Service Date/Time: Sunday, April 17, 2016 20:39 - CONCLUSION: 1. Subarachnoid hemorrhage predominantly around the brainstem. No recent infarction, mass effect or shift. No hydrocephalus. Juan Robertson MD Assessment & Plan Diagnosis: (1) Subarachnoid bleed Plan: Perimesencephalic hemorrhage with no focal deficit, 2-3mm clot in the ambien cistern with blood seen down to C2. Plan CTA, MRI/MRA to rule out a dissection of the VAs or a small aneurysm of the posterior circulation. TCDs, nimotop, keppra, DVT and PUD prophylaxis ordered per protocol. Will control the BP to keep the SBP 120-140 04/18/16 Benign perimesencephalic SAH so far but TCDs are pending. We will continue supportive care, seizure prophylaxis, BP control. nimodipine and start OT/PT. Plan cerebral angiogram when some of the blood resolves. 04/19/16 TCDs still wnl, she is stable for cerebral angiogram. 04/20/16 Negative cerebral angiogram, oral intake and rehab participation is encouraged as tolerated. DVT prophylaxis and seizure prophylaxis is continued. 04/21/[address] to evaluate the ventricle size is scheduled for tomorrow am. TCDs appreciated and helpful. Will hold the IV dilaudid because of nausea. Plan tx to the floor tomorrow is the CT shows no hydrocephalus. (2) HTN (hypertension) Plan: On nimodipine and labetolol PRN. Brock Gutierrez Apr 21, 2016 07:30
[2016-04-21] MEDS: levETIRAcetam 500 MG TAB PO SCH ×2 (08:51→21:16)
[2016-04-21] MEDS: PANTOPRAZOLE SODIUM 40 MG VIAL IVP SCH (08:53)
[2016-04-21] MEDS: SODIUM CHLORIDE 0.9% FLUSH 5 ML FLUSH IV FLUSH SCH ×2 (08:53→21:00)
[2016-04-21] MEDS: EZETIMIBE 10 MG TAB PO SCH (08:58)
[2016-04-21] MEDS: NAPROXEN 500 MG TAB PO SCH ×2 (08:59→21:00)
--- NOTE | 2016-04-21 09:15 | PD.TRANSFR ---
Transfer Summary Admission Date Apr 17, 2016 at 19:04 Transfer Date: Apr 22, 2016 Admitting Diagnosis subarachnoid bleed Diagnoses: (1) Subarachnoid bleed Diagnosis: Principal (2) HTN (hypertension) Diagnosis: Principal Transfer Summary/Subjective Presented with severe headache and hypertension. Subarachnoid hemorrhage but no aneurysm identified. Persistent headache and nausea. BP controll acceptable. Will remain on nimodipine for [address] Gutierrez NS following. I spoke at length with her daughter in [place] who is a nurse today - described are treatment and evaluation to date. Objective Vital Signs Date Time Temp Pulse Resp B/P Pulse Ox O2 Delivery O2 Flow Rate FiO2 04/21/16 08:22 18 04/21/16 08:00 68 04/21/16 08:00 98.0 129/64 94 04/21/16 07:00 Room Air 04/20/16 07:54 21 04/20/16 07:00 2.00 Intake and Output 04/20/16 04/20/16 04/21/16 08:00 16:00 00:00 Intake Total 1047 ml 1130 ml 470 ml Balance 1047 ml 1130 ml 470 ml Result Diagram: 04/19/16 0507 04/21/16 0350 Objective Remarks GENERAL: Calm SKIN: Warm, dry. HEAD: Atraumatic. Normocephalic. EYES: Pupils 2 mm, reactive bilaterally. NECK: Trachea midline. Airway widely patent. CARDIOVASCULAR: Regular rate and rhythm. No murmurs rubs or gallops. No JVD. RESPIRATORY: Clear to auscultation. Breath sounds equal bilaterally. No wheezes or crackles. Comfortable pattern. GASTROINTESTINAL: Abdomen soft, non-tender, nondistended. Bowel sounds present. MUSCULOSKELETAL: Extremities without clubbing, cyanosis, or edema. Warm, well perfused. NEUROLOGICAL: Awake and alert, oriented. No obvious cranial nerve deficits. Five out of 5 muscle strength in the arms and legs. Sensation intact. No pronator drift. Normal speech. A/P Assessment and Plan NEURO: Acute spontaneous subarachnoid hemorrhage, [place] Almeida grade 2 Nimodipine 60 mg by mouth every 4 hours. Cardene if needed to maintain systolic blood pressure 120-140 Maintain normothermia. Ofirmev 1 g IV every 8 hours. Avoid hypovolemia, hyponatremia Dilaudid 0.5-1 mg IV every 3 hours when necessary pain. CTA brain, MRA brain and neck shows no aneurysm. There is reportedly mild vasospasm. Neurocheck q1 hour, Watch closely for worsening vasospasm No cerebrovascular abnormality. Neurosurgery following, Dr. Gutierrez. Await formal angiogram RESP: Nasal cannula wean as tolerated CV: Hyperlipidemia Statin intolerance (myalgias) Continue Zetia 10 mg by mouth daily GI: GERD Nausea Nothing by mouth, Diet if patient can tolerate, and is nausea improved Zofran 4 mg IV every 6 hours when necessary nausea Phenergan 25 mg IM every 6 hours Protonix 40 g IV daily FEN/RENAL: Normal renal function. Monitor intake and output. Monitor electrolytes and replace as indicated per ICU electrolyte replacement protocol. ID: Mild reactive leukocytosis. Monitor for evidence of infection. HEME: Follow-up CBC ENDO: Mild hyperglycemia. Monitor glucose and use low-dose insulin sliding scale if indicated. PROPH: SCDs for DVT prophylaxis. Protonix 40 mg IV daily for stress ulcer prophylaxis and history of GERD and esophagitis. ACCESS: Peripheral IV providing adequate access at this time. Overall impression: Concerning subarachnoid blood and headache, no aneurysm identified. Follow clinical exam and TCDs. Well hydrated. Thierry Leon MD Apr 21, 2016 09:15
[2016-04-21] MEDS ORDERED: PNEUMOCOCCAL POLYVALENT INJ 25 MCG/0.5 ML SYR IM ONE (10:00)
--- NOTE | 2016-04-21 10:14 | RADRPT ---
EXAM DATE/TIME: 04/21/2016 07:59 [facility] COMPARISON: US TRANSCRANIAL DOPPLER COMPLETE, April 20, 2016, 9:23. INDICATIONS : Subarachnoid hemorrhage. MEDICAL HISTORY : Gastroesophageal reflux disease. Hypertension. Migraine. SURGICAL HISTORY : Right kidney cryo ablation. Right foot surgery. ENCOUNTER: Subsequent ACUITY: 4-6 days PAIN SCORE: 3/10 LOCATION: Bilateral cranial TIME -AVERAGED MAXIMAL VELOCITIES: MCA (1): Right: 77.6 Left: 78.7 MCA (2): Right: 64.0 Left: 52.8 ANNE MARIE (1): Right: 36.9 Left: 44.5 ANNE MARIE (2): Right: 33.2 Left: 44.6 AUDIOVISUAL LIBRARIAN (1): Right: 65.8 Left: 69.4 AUDIOVISUAL LIBRARIAN (2): Right: 48.2 Left: 37.6 Opthalmic Artery: Right: Not scanned. VERTEBRAL: Right: 54.2 antegrade Left: 64.4 antegrade BASILAR: 87.8 ICA: Right: 23.0 Left: 33.0 [place]ard Ratio: Right: 3.4 Left: 2.3 Matthews Ratio: Right: 1.6 Left: 1.3 FINDINGS: Examination performed at bedside. Real-time ultrasound with the assistance of color and spectral Dop pler was utilized to evaluate the intracerebral circulation. Time-averaged maximal velocities are ca lculated in cm/s. Doppler velocities all remain within the range of normal. Lindegard ratios are also stable and within the range of normal. CONCLUSION: Stable examination with no Doppler findings of vasospasm. Joey Concepcion MD on April 21, 2016 at 10:08 Board Certified Radiologist. This report was verified electronically.
[2016-04-21] MEDS ORDERED: ACETAMINOPHEN/HYDROcodone 325 MG/5 MG TAB PO SCH (11:00)
[2016-04-22] VITALS (7 sets, daily range): BP systolic 102–137; BP diastolic 59–81; PULSE 65–89; RESP 13–20; TEMP 98–98.6; O2SAT 95–99
[2016-04-22] MEDS: SODIUM CHLOR 0.9% 1000 ML INJ 1,000 ML IV SCH ×2 (00:14→12:44)
[2016-04-22] MEDS: niMODipine 30 MG CAP PO SCH ×6 (00:23→21:08)
[2016-04-22] MEDS: CHLORHEXIDINE GLUCONATE 2 % 1 PACK (2 CLOTHS) TOP SCH (03:32)
[2016-04-22] MEDS: ACETAMINOPHEN 325 MG TAB PO PRN ×4 (04:22→17:59)
--- NOTE | 2016-04-22 04:39 | RADRPT ---
EXAM DATE/TIME: 04/22/2016 04:09 [facility] COMPARISON: CT BRAIN W/O CONTRAST, April 17, 2016, 17:48. INDICATIONS : Follow up perimesencephalic bleed RADIATION DOSE: 31.98 CTDIvol (mGy) MEDICAL HISTORY : None SURGICAL HISTORY : None. ENCOUNTER: Initial ACUITY: 3 days PAIN SCALE: 0/10 LOCATION: Bilateral cranial TECHNIQUE: Multiple contiguous axial images were obtained of the head. Using automated exposure control and adj ustment of the mA and/or kV according to patient size, radiation dose was kept as low as reasonably a chievable to obtain optimal diagnostic quality images. FINDINGS: Noncontrast axial head CT demonstrates the ventricles to be normal in size and configuration with a n ormal sulcal pattern. No acute intracranial hemorrhage, acute cortical infarction, mass or midline sh ift is seen. The perimesencephalic hemorrhage has resolved. Posterior fossa structures are unremarkab le. Bone windows are unremarkable. CONCLUSION: 1. No evidence of acute intracranial pathology. No masses are identified. 2. Resolution of the previously seen perimesencephalic hemorrhage Tony Steve MD on April 22, 2016 at 4:35 Board Certified Radiologist. This report was verified electronically.
[2016-04-22] MEDS ORDERED: NIMO30CA3 PO (07:14)
[2016-04-22] MEDS: PANTOPRAZOLE SODIUM 40 MG VIAL IVP SCH (08:18)
[2016-04-22] MEDS: EZETIMIBE 10 MG TAB PO SCH (08:18)
[2016-04-22] MEDS: SODIUM CHLORIDE 0.9% FLUSH 5 ML FLUSH IV FLUSH SCH ×2 (08:19→21:09)
[2016-04-22] MEDS: NAPROXEN 500 MG TAB PO SCH ×2 (08:44→21:09)
[2016-04-22] MEDS: DOCUSATE SODIUM 100 MG CAP PO PRN (09:50)
--- NOTE | 2016-04-22 10:50 | HHI.NSPN ---
Subjective History 56 yr old day 1 after perimesencephalic bleed, still has nausea and headaches but has no new neurologic deficit. CTA, MRA of the neck were performed. No dissection or aneurysm is seen so far. GCS 15. 04/19/16 She remains awake and with no focal deficit. IVF hydration is continued. TCDs shows no vasospams so far 04/20/16 Cerebral angiogram was negative for aneurysm. Benign perimesencephalic SAH is suspected. Headaches are improving. visual marin remain good. TCDs are continued. Rehab services are following to establish rehab needs. 04/21/16 She is nauseous but alert and awake. The nausea is as bad as the headache. 04/22/16 The headaches are improving. CT of the head this am shows normal ventricles and resolution of the SAH. Vitals . Vital Signs Date Time Temp Pulse Resp B/P Pulse Ox O2 Delivery O2 Flow Rate FiO2 04/22/16 08:00 98.5 68 14 129/70 95 04/22/16 08:00 85 04/22/16 07:00 94 Room Air 04/22/16 04:00 65 04/22/16 04:00 98.5 65 17 137/81 99 04/22/16 00:00 98.6 67 13 102/59 95 04/22/16 00:00 67 04/21/16 20:20 95 04/21/16 20:00 84 04/21/16 20:00 98.5 81 21 118/57 96 04/21/16 19:00 97 Room Air 04/21/16 18:00 84 04/21/16 16:00 68 04/21/16 16:00 98.0 83 16 137/65 94 04/21/16 14:00 71 04/21/16 12:00 98.2 82 20 119/69 99 04/21/16 12:00 68 04/21/16 04/21/16 04/22/16 15:00 23:00 07:00 Intake Total 580 ml 210 ml 210 ml Balance 580 ml 210 ml 210 ml Physical Exam Eyes Eyes: Pupils Equal Neuro Mental Status: Awake, Oriented x 3 Pupils: Reactive Bilaterally Speech: Clear [place] Coma Scale Best Eye Openin - Spontaneous Best Verbal: 5 - Oriented Best Motor: 6 - Obeys Total Glascow Coma Scale (GCS): 15 Sensation: Intact Cardiac Cardiac: Regular Rate & Rhythm Gastrointestinal Gastrointestinal: Soft Musculoskeletal Musculoskeletal: Moves all extrem with 5/5 strength Extremities Upper Extremities Deltoid Bicep Tricep HI W. Ext Right Left Lower Extremeties Ilio Quad Plantar Dorsi EHL Right Left Extremities Edema: SCDs Objective Imaging Remarks Last Impressions Head CT 04/22/16 0600 Signed Impressions: Service Date/Time: Friday, April 22, 2016 04:09 - CONCLUSION: 1. No evidence of acute intracranial pathology. No masses are identified. 2. Resolution of the previously seen perimesencephalic hemorrhage Tony Steve MD Transcranial Doppler Study Complete 04/21/16 0730 Signed Impressions: Service Date/Time: April 07:59 - CONCLUSION: Stable examination with no Doppler findings of vasospasm. Joey Concepcion MD Cervical Spine CT 04/17/16 1657 Signed Impressions: Service Date/Time: Sunday, April 17, 2016 17:48 - CONCLUSION: 1. Moderate degenerative change of the lower cervical spine. No acute findings. Juan Robertson MD Neck Magnetic Resonance Angiography 04/17/16 0000 Signed Impressions: Service Date/Time: Sunday, April 17, 2016 20:39 - CONCLUSION: 1. Mild plaque at the carotid bifurcations bilaterally without hemodynamically significant stenosis. Remainder of exam unremarkable. Juan Robertson MD Head Magnetic Resonance Angiography 04/17/16 0000 Signed Impressions: Service Date/Time: Sunday, April 17, 2016 20:39 - CONCLUSION: Normal examination for a patient of this age. Juan Robertson MD Head CTA 04/17/16 0000 Signed Impressions: Service Date/Time: Sunday, April 17, 2016 19:08 - CONCLUSION: 1. No discrete aneurysm is identified on CTA brain. There does appear be some mild vasospasm. Juan Robertson MD Brain MRI 04/17/16 0000 Signed Impressions: Service Date/Time: Sunday, April 17, 2016 20:39 - CONCLUSION: 1. Subarachnoid hemorrhage predominantly around the brainstem. No recent infarction, mass effect or shift. No hydrocephalus. Juan Robertson MD Assessment & Plan Diagnosis: (1) Subarachnoid bleed Plan: Perimesencephalic hemorrhage with no focal deficit, 2-3mm clot in the ambien cistern with blood seen down to C2. Plan CTA, MRI/MRA to rule out a dissection of the VAs or a small aneurysm of the posterior circulation. TCDs, nimotop, keppra, DVT and PUD prophylaxis ordered per protocol. Will control the BP to keep the SBP 120-140 04/18/16 Benign perimesencephalic SAH so far but TCDs are pending. We will continue supportive care, seizure prophylaxis, BP control. nimodipine and start OT/PT. Plan cerebral angiogram when some of the blood resolves. 04/19/16 TCDs still wnl, she is stable for cerebral angiogram. 04/20/16 Negative cerebral angiogram, oral intake and rehab participation is encouraged as tolerated. DVT prophylaxis and seizure prophylaxis is continued. 04/21/[address] to evaluate the ventricle size is scheduled for tomorrow am. TCDs appreciated and helpful. Will hold the IV dilaudid because of nausea. Plan tx to the floor tomorrow is the CT shows no hydrocephalus. 04/22/16 SAH has resolved on CT. She has headaches but they are improving. Plan tx to the floor. (2) HTN (hypertension) Plan: On nimodipine and labetolol PRN. Brock Gutierrez Apr 22, 2016 10:49
--- NOTE | 2016-04-22 11:57 | HHI.PR ---
Subjective Remarks resting comfortably with no distress. has mild headache. no BM past few days. d/w the RN and no acute issues over night. Objective Vitals Vital Signs Date Time Temp Pulse Resp B/P Pulse Ox O2 Delivery O2 Flow Rate FiO2 04/22/16 08:00 98.5 68 14 129/70 95 04/22/16 08:00 85 04/22/16 07:00 94 Room Air 04/22/16 04:00 65 04/22/16 04:00 98.5 65 17 137/81 99 04/22/16 00:00 98.6 67 13 102/59 95 04/22/16 00:00 67 04/21/16 20:20 95 04/21/16 20:00 84 04/21/16 20:00 98.5 81 21 118/57 96 04/21/16 19:00 97 Room Air 04/21/16 18:00 84 04/21/16 16:00 68 04/21/16 16:00 98.0 83 16 137/65 94 04/21/16 14:00 71 04/21/16 12:00 98.2 82 20 119/69 99 04/21/16 12:00 68 I/O 04/21/16 04/21/16 04/21/16 04/22/16 04/22/16 04/22/16 07:00 15:00 23:00 07:00 15:00 23:00 Intake Total 580 ml 210 ml 210 ml Balance 580 ml 210 ml 210 ml Intake Oral 480 ml 210 ml 210 ml IV Total 100 ml 0 ml 0 ml # Voids 2 3 1 1 # Bowel Movements 0 0 0 0 Result Diagram: 04/19/16 0507 04/21/16 0350 Imaging Last Impressions Head CT 04/22/16 0600 Signed Impressions: Service Date/Time: Friday, April 22, 2016 04:09 - CONCLUSION: 1. No evidence of acute intracranial pathology. No masses are identified. 2. Resolution of the previously seen perimesencephalic hemorrhage Tony Steve MD Transcranial Doppler Study Complete 04/21/16 0730 Signed Impressions: Service Date/Time: April 07:59 - CONCLUSION: Stable examination with no Doppler findings of vasospasm. Joey Concepcion MD Cervical Spine CT 04/17/16 6454 Signed Impressions: Service Date/Time: Sunday, April 17, 2016 17:48 - CONCLUSION: 1. Moderate degenerative change of the lower cervical spine. No acute findings. Juan Robertson MD Neck Magnetic Resonance Angiography 04/17/16 Signed Impressions: Service Date/Time: Sunday, April 17, 2016 20:39 - CONCLUSION: 1. Mild plaque at the carotid bifurcations bilaterally without hemodynamically significant stenosis. Remainder of exam unremarkable. Juan Robertson MD Head Magnetic Resonance Angiography 04/17/16 Signed Impressions: Service Date/Time: Sunday, April 17, 2016 20:39 - CONCLUSION: Normal examination for a patient of this age. Juan Robetrson MD Head CTA 04/17/16 Signed Impressions: Service Date/Time: Sunday, April 17, 2016 19:08 - CONCLUSION: 1. No discrete aneurysm is identified on CTA brain. There does appear be some mild vasospasm. Juan Robertson MD Brain MRI 04/17/16 Signed Impressions: Service Date/Time: Sunday, April 17, 2016 20:39 - CONCLUSION: 1. Subarachnoid hemorrhage predominantly around the brainstem. No recent infarction, mass effect or shift. No hydrocephalus. Juan Robertson MD Objective Remarks GENERAL: This is a well-nourished, well-developed patient, in no apparent distress. CARDIOVASCULAR: Regular rate and regular rhythm without murmurs, gallops, or rubs. RESPIRATORY: Clear to auscultation. Breath sounds equal bilaterally. No wheezes , rales, or rhonchi. GASTROINTESTINAL: Abdomen soft, non-tender, nondistended. Normal, active bowel sounds MUSCULOSKELETAL: Extremities without clubbing, cyanosis, or edema. NEURO: Alert & Oriented x4 to person, place, time, situation. Moves all ext x4 Medications and IVs Current Medications IV Flush (NS Flush) 2 ml UNSCH PRN IVF FLUSH AFTER USING IV ACCESS; Start 04/17 at 17:00; Stop 04/17/16 at 19:05; Status DC Ondansetron HCl (Zofran Inj) 4 mg ONCE ONCE IVP Last administered on t 17:15; Start 04/17/16 at 17:00; Stop 04/17/16 at 17:01; Status DC Hydromorphone HCl 1 mg 1 mg ONCE ONCE IVS Last administered on 04/17/16 17:15 ; Start 04/17/16 at 17:00; Stop 04/17/16 at 17:01; Status DC Sodium Chloride 1,000 ml @ 1,000 mls/hr Q1H ONCE IV Last administered on 17:14; Start 04/17/16 at 16:57; Stop 04/17/16 at 17:56; Status DC Potassium Chloride/Sodium Chloride (NS + KCl 20 Meq Inj) 1,000 ml @ 125 mls/hr Q8H IV ; Start 04/17/16 at 19:00; Stop 04/17/16 at 19:23; Status DC IV Flush (NS Flush) 2 ml UNSCH PRN IV FLUSH FLUSH AFTER USING IV ACCESS; Start 04/17/16 at 19:00 IV Flush (NS Flush) 2 ml BID IV FLUSH Last administered on 04/22/16 08:19; Start 04/17/16 at 21:00 Acetaminophen (Tylenol) 650 mg Q6H PRN PO PAIN 1-10 AND/OR FEVER >101F; Start 04/17/16 at 19:00; Stop 04/17/16 at 19:23; Status DC Pantoprazole Sodium (Protonix Inj) 40 mg DAILY IV ; Start 04/18/16 at 09:00; Stop 04/18/16 at 09:00; Status DC Ondansetron HCl (Zofran Inj) 4 mg Q6H PRN IV NAUSEA OR VOMITING Last administered on 04/21/16 10:48; Start 04/17/16 at 19:00 Albuterol Sulfate (Albuterol Neb) 2.5 mg Q2HR NEB PRN INH SOB/WHEEZING; Start 04/17/16 at 19:00 Miscellaneous Information 1 [id number] XX ; Start 04/17/16 at 19:00 Chlorhexidine Gluconate (Chlorhexidine 2% Cloth) 3 pack Taper DAILY@04 TOP Last administered on 04/22/16 03:32; Start 04/18/16 at 04:00; Stop 04/14/17 at 03:59 Chlorhexidine Gluconate (Chlorhexidine 2% Cloth) 3 pack UNSCH PRN TOP HYGIENIC CARE; Start 04/17/16 at 19:00 Nimodipine (Nimotop) 60 mg Q4HR PO Last administered on 04/22/16 03:52; Start 04/17/16 at 20:00; Stop 04/22/16 at 07:12; Status DC Ondansetron HCl 4 mg 4 mg ONCE ONCE IV PUSH Last administered on 04/17/16 19: 06; Start 04/17/16 at 19:15; Stop 04/17/16 at 19:16; Status DC Nicardipine HCl/ Sodium Chloride (Cardene Inj/NS 250 ml Inj) 260 ml @ 0 mls/hr TITRATE IV ; Start 04/17/16 at 19:15; Stop 04/20/16 at 06:53; Status DC EZETIMIBE 10 mg 10 mg DAILY PO Last administered on 04/22/16 08:18; Start at 09:00 Sodium Chloride (NS 1000 ml Inj) 1,000 ml @ 80 mls/hr [id number] IV Last administered on 04/20/16 00:06; Start 04/17/16 at 19:12 IV Flush (NS Flush) 2 ml UNSCH PRN IVF FLUSH AFTER USING IV ACCESS; Start 04/17 at 19:15; Stop 04/17/16 at 19:23; Status DC IV Flush (NS Flush) 2 ml BID IVF ; Start 04/17/16 at 21:00; Stop 04/17/16 at 21: 00; Status DC Labetalol HCl 10 mg 10 mg Q4H PRN IV SYS BP GREATER THAN 160 MMHG; Start at 19:15; Stop 04/22/16 at 07:11; Status DC Nicardipine HCl/ Sodium Chloride (Cardene Inj/NS 250 ml Inj) 260 ml @ 0 mls/hr TITRATE IV ; Start 04/17/16 at 19:15; Stop 04/17/16 at 19:23; Status DC Clonidine (Catapres) 0.1 mg Q6H PRN PO to keep SBP between 140-160; Start 04/17 at 19:15 Pantoprazole Sodium (Protonix Inj) 40 mg DAILY IVP Last administered on 08:18; Start 04/18/16 at 09:00 Acetaminophen (Tylenol) 650 mg Q4H PRN PO PAIN SCALE 1 TO 5 Last administered on 04/22/16 10:03; Start 04/17/16 at 19:15 Acetaminophen/ Hydrocodone Bitart 1 tab 1 tab Q4H PRN PO PAIN SCALE 6 TO 10 Last administered on 04/21/16 10:48; Start 04/17/16 at 19:15; Stop 04/21/16 at 11:00; Status DC Levetriacetam (Keppra 1000 Mg Inj) 100 ml @ 400 mls/hr ONCE ONCE IV Last administered on 04/17/16 21:30; Start 04/17/16 at 19:15; Stop 04/17/16 at 19:29 ; Status DC Docusate Sodium (Colace) 100 mg BID PRN PO CONSTIPATION Last administered on 09:50; Start 04/17/16 at 19:15 Magnesium Hydroxide (Milk Of Magnesia Liq) 30 ml DAILY PRN PO Severe Constipation; Start 04/17/16 at 19:15; Stop 04/17/16 at 19:23; Status DC Nimodipine (Nimotop) 60 mg Q4HR PO ; Start 04/17/16 at 20:00; Stop 04/17/16 at 20:00; Status DC Iohexol (Omnipaque 350 Inj) 75 ml STK-MED ONCE IV Last administered on 19:21; Start 04/17/16 at 19:21; Stop 04/17/16 at 19:22; Status DC Ondansetron HCl (Zofran Odt) 4 mg Q4H PO Last administered on 04/19/16 17:03 ; Start 04/17/16 at 20:00; Stop 04/19/16 at 19:59; Status DC Hydromorphone HCl (Dilaudid Pf Inj) 1 mg UNSCH X1 PRN IV PUSH [employer] T[employer]OR T MRI Last administered on 04/18/16 16:54; Start 04/17/16 at 20:15; Stop 04/18/16 at 20:14; Status DC Promethazine HCl (Phenergan Inj) 25 mg UNSCH X1 PRN IM [employer] T[employer]OR TO MRI Last administered on 04/17/16 20:27; Start 04/17/16 at 20:15; Stop 04/18/16 at 20:14 ; Status DC Gadodiamide (Omniscan Pf Inj) 20 ml STK-MED ONCE IV Last administered on 20:46; Start 04/17/16 at 20:46; Stop 04/17/16 at 20:47; Status DC Morphine Sulfate (Morphine Inj) 4 mg Q3H PRN IV PAIN 1 TO 10 Last administered on 04/17/16 21:55; Start 04/17/16 at 22:00 Promethazine HCl (Phenergan Inj) 25 mg Q6H PRN IM NAUSEA/VOMITING Last administered on 04/19/16 05:14; Start 04/17/16 at 22:00 Hydromorphone HCl (Dilaudid Pf Inj) 0.5 mg Q3H PRN IV PUSH PAIN 1-5; Start 02/19 at 22:00; Stop 04/21/16 at 07:13; Status DC Acetaminophen (Ofirmev Inj) 1,000 mg Q8HR IV Last administered on 04/21/16 05: 59; Start 04/17/16 at 22:00; Stop 04/21/16 at 07:13; Status DC Hydromorphone HCl 1 mg 1 mg Q3H PRN IV PUSH PAIN 6-10 Last administered on 04/21 04:20; Start 04/17/16 at 22:00; Stop 04/21/16 at 07:13; Status DC Potassium Chloride 100 ml @ 50 mls/hr Q2H PRN IV For Potassium 2.8 - 3.2 mEq/L ; Start 04/17/16 at 22:45 Potassium Chloride (KCl 20 Meq Premix Inj) 100 ml @ 50 mls/hr Q2H PRN IV For Potassium 2.8 - 3.2 mEq/L; Start 04/17/16 at 22:45 Potassium Chloride 40 meq 40 meq UNSCH PRN PO/TUBE For Potassium 3.3 - 3.5 mEq/ L; Start 04/17/16 at 22:45 Potassium Chloride 100 ml @ 25 mls/hr UNSCH PRN IV For Potassium 3.3 - 3.5 mEq /L; Start 04/17/16 at 22:45 Potassium Chloride 100 ml @ 50 mls/hr Q2H PRN IV For Potassium 3.3 - 3.5 mEq/L ; Start 04/17/16 at 22:45 Magnesium Sulfate/ Sodium Chloride (Magnesium Sulfate Inj/NS Inj) 100 ml @ 50 mls/hr UNSCH PRN IV For Magnesium 0.9 - 1.1 mg/dL; Start 04/17/16 at 22:45 Magnesium Oxide 800 mg 800 mg UNSCH PRN PO For Magnesium 1.2 - 1.6 mg/dL; Start 04/17/16 at 22:45 Magnesium Sulfate/ Sodium Chloride (Magnesium Sulfate Inj/NS Inj) 100 ml @ 50 mls/hr UNSCH PRN IV For Magnesium 1.2 - 1.6 mg/dL; Start 04/17/16 at 22:45 Potassium Phosphate 2000 mg 2,000 mg Q4H PRN PO For Phosphorus < 2.5 mg/dL; Start 04/17/16 at 22:45 Sodium Phosphate/ Sodium Chloride (Sodium Phosphate Inj/NS 250 ml Inj) 250 ml @ 42 mls/hr UNSCH PRN IV For Phosphorus < 2.5 mg/dL; Start 04/17/16 at 22:45 Potassium Chloride (KCl 40 Meq/30 ml Liq) 40 meq UNSCH PRN PO/TUBE SEE LABEL COMMENTS; Start 04/17/16 at 22:45 Potassium Phosphate 2000 mg 2,000 mg UNSCH PRN PO/TUBE SEE LABEL COMMENTS; Start 04/17/16 at 22:45 Potassium Phosphate 30 mmol/ Sodium Chloride 260 ml @ 42 mls/hr UNSCH PRN IV SEE LABEL COMMENTS; Start 04/17/16 at 22:45 Levetriacetam 500 mg/Sodium Chloride 105 ml @ 420 mls/hr Q12HR IV ; Start 04/19 at 21:00; Stop 04/19/16 at 21:00; Status DC Levetriacetam/ Sodium Chloride (Keppra Inj/NS Inj) 105 ml @ 420 mls/hr Q12HR IV Last administered on 04/19/16 19:45; Start 04/19/16 at 12:00; Stop at 06:53; Status DC Lorazepam (Ativan Inj) 2 mg STK-MED ONCE .ROUTE Last administered on 04/19/16 13:03; Start 04/19/16 at 13:03; Stop 04/19/16 at 13:04; Status DC Fentanyl Citrate (fentaNYL INJ) 250 mcg STK-MED ONCE .ROUTE Last administered on 04/19/16 13:39; Start 04/19/16 at 13:39; Stop 04/19/16 at 13:40; Status DC Iodixanol (Visipaque 320 Inj) 105 ml STK-MED ONCE I-ARTERIAL Last administered on 04/19/16 14:37; Start 04/19/16 at 14:37; Stop 04/19/16 at 14:38; Status DC Levetriacetam (Keppra) 500 mg Q12HR PO Last administered on 04/21/16 21:16; Start 04/20/16 at 09:00; Stop 04/22/16 at 07:12; Status DC Pneumococcal Polyvalent Vaccine (Pneumovax-23 Inj) 25 mcg ONCE ONCE IM Last administered on 04/21/16 08:53; Start 04/21/16 at 10:00; Stop 04/21/16 at 10:01 ; Status DC Acetaminophen/ Hydrocodone Bitart (Fed[place]reek 5-325 Mg) 1 tab [id number] SLIDE SCALE PO ; Start 04/21/16 at 11:00; Stop 04/21/16 at 11:00; Status DC Naproxen (Naprosyn) 500 mg Q12HR PO Last administered on 04/22/16 08:44; Start 04/21/16 at 09:00 Nimodipine (Nimotop) 60 mg QID PO Last administered on 04/22/16 08:18; Start 04/22/16 at 09:00 A/P Assessment and Plan A/P Acute spontaneous subarachnoid hemorrhage Nimodipine 60 mg by mouth every 4 hours. continue with pain control. CTA brain, MRA brain and neck shows no aneurysm. There is reportedly mild vasospasm. Neurosurgery following, Dr. Gutierrez. Hyperlipidemia Statin intolerance (myalgias) Continue Zetia 10 mg by mouth daily GERD Nausea- has resolved. constipation antiemetics / laxatives as needed. continue PPI. Mild reactive leukocytosis. Monitor for evidence of infection. PROPH: SCDs for DVT prophylaxis. Protonix 40 mg IV daily for stress ulcer prophylaxis and history of GERD and esophagitis. for transfer to floor. Khanh Buckley MD Apr 22, 2016 11:57
--- NOTE | 2016-04-22 12:09 | RADRPT ---
EXAM DATE/TIME: 04/22/2016 07:55 [facility] COMPARISON: US TRANSCRANIAL DOPPLER COMPLETE, April 21, 2016, 7:59. INDICATIONS : Subarachnoid hemorrhage. MEDICAL HISTORY : Gastroesophageal reflux disease. Hypertension. Migraine. SURGICAL HISTORY : Right kidney cryo ablation. Right foot surgery. ENCOUNTER: Initial ACUITY: 4-6 days PAIN SCORE: 0/10 LOCATION: cranial TIME -AVERAGED MAXIMAL VELOCITIES: MCA (1): Right: 65.0 Left: 75.9 MCA (2): Right: 52.6 Left: 56.4 ANNE MARIE (1): Right: 40.1 Left: 35.6 ANNE MARIE (2): Right: 35.5 Left: 37.3 MANAGER FLORAL (1): Right: 49.4 Left: 64.4 MANAGER FLORAL (2): Right: 41.8 Left: 38.2 Opthalmic Artery: Right: Not scanned. Left: Not scanned. VERTEBRAL: Right: 47.8 antegrade Left: 64.3 antegrade BASILAR: 75.8 ICA: Right: 18.4 Left: 30.5 Lindegaard Ratio: Right: 3.5 Left: 2.5 Matthews Ratio: Right: 2.2 Left: 1.2 FINDINGS: Examination performed at bedside. Real-time ultrasound with the assistance of color and spectral Dop pler was utilized to evaluate the intracerebral circulation. Time-averaged maximal velocities are ca lculated in cm/s. There is minimal elevation of the Lindegaard ratio on the right to 3.5. The left is stable at 2.5. Individual velocities are recently stable. CONCLUSION: Mild elevation of the Lindegaard ratio on the right. Serial followup is suggested. Jonathan Singh MD FACR on April 22, 2016 at 11:21 Board Certified Radiologist. This report was verified electronically.
[2016-04-22] MEDS: MAGNESIUM HYDROXIDE SUSP 30 ML CUP PO PRN (14:11)
--- NOTE | 2016-04-22 15:18 | RADRPT ---
EXAM DATE/TIME: 04/19/2016 12:57 [facility] COMPARISON: No previous studies available for comparison. INDICATIONS : Severe headache. MEDICAL HISTORY : 1. Migraines 2. GERD 3. esophagitis 4.Hyperlipidemia 5.SAH SURGICAL HISTORY : 1. Rt kidney ablation 2.Right foot surgery ENCOUNTER: Initial ACUITY: 3 days PAIN SCORE: 8/10 LOCATION: head FLUORO TIME: 10.4 minutes ACCESS SITE: Right Femoral artery SEDATION TIME: 45 minutes CONTRAST: 105 cc Visipaque (iodixanol) MEDICATION(S): 1.) 100 mcg fentanyl (Sublimaze) IV 2.) 2 mg lorazepam (Ativan) IV DEVICE(S): 1.) Right common femoral artery syvek patch PROCEDURE : 1. Ultrasound-guided puncture of the access site. 2. Conscious sedation with continuous EKG and Oximetry monitoring. 3. Angiography of the left vertebral artery 4. Angiography of the right internal carotid 5. Angiography of the left internal carotid The risks, benefits and alternatives to the procedure were explained and verbal and written consent w as obtained. The site was prepped in sterile fashion. Full sterile technique was used, including ca p, mask, sterile gloves and gown and a large sterile sheet. Hand hygiene and 2% chlorhexidine and/or betadine/alcohol prep was utilized per protocol for cutaneous antisepsis. The skin and subcutaneous tissues were infiltrated with local anesthetic solution. With ultrasound and fluoroscopic guidance the selected artery was punctured and a vascular sheath was placed A JB2 catheter was used to select the left vertebral artery. Contrast injection showed normal caliber of the left vertebral. Posterior cerebral artery is widely patent. No aneurysmal disease. Catheter was then advanced into the brachiocephalic artery. Contrast injection confirmed positioning. The catheter was then directed into the internal carotid. A standard and rotational angiogram was pe rformed again shown normal arborization of the MCA and ANNE MARIE territories without aneurysmal disease. Catheter was then advanced into the left common carotid artery. Position was confirmed post contrast catheter and wire were then manipulated into the internal carotid. He stated rotational angiogram was performed showing normal arborization of the MCA and ANNE MARIE territories without aneurysmal disease. The puncture site was closed with manual pressure and hemostasis was obtained. The patient tolerated the procedure well and there were no complications. Conscious sedation was performed with the prescribed dosages and duration as above. EKG and oximetry remained stable throughout the procedure. CONCLUSION: Negative exam. No aneurysmal disease identified. Joey Concepcion MD on April 22, 2016 at 15:14 Board Certified Radiologist. This report was verified electronically.
--- NOTE | 2016-04-22 16:18 | HHI.CCPN ---
Subjective Remarks/Hospital Course Note for 04/21/16: 56 yo WF with PMH of hyperlipidemia, migraine headaches who presented [place] [facility] [place] for sudden onset of headache 10/10 severity, bilateral jaw pain, neck pain , nausea, and photophobia that started after getting a haircut. CT brain demonstrated SAH in basilar cisterns concerning for aneurysmal leak. Neurosurgery has seen the patient and requested admission to critical care medicine service. Coags are normal. She is nauseated and continues to complain of headache. Denies weakness, parasthesias, seizures, SOB. SUBJ Lying in bed. complaints of head ache and nausea, CTA brain, MRA brain and neck negative for aneurysm. BP control adequate. Remains on Nimotop 04/19: Headache persists. TCDs no spasm. 04/20: No change. BP control acceptable. 04/21: Lengthy discussion with and patient and plan. Objective Vital Signs Date Time Temp Pulse Resp B/P Pulse Ox O2 Delivery O2 Flow Rate FiO2 04/22/16 16:00 77 04/22/16 16:00 98.4 17 131/71 98 04/22/16 07:00 Room Air 04/20/16 07:54 21 04/20/16 07:00 2.00 Intake and Output 04/21/16 04/21/16 04/22/16 08:00 16:00 00:00 Intake Total 580 ml 210 ml Balance 580 ml 210 ml Result Diagram: 04/19/16 0507 04/21/16 0350 Objective Remarks GENERAL: Calm SKIN: Warm, dry. HEAD: Atraumatic. Normocephalic. EYES: Pupils 2 mm, reactive bilaterally. NECK: Trachea midline. Airway widely patent. CARDIOVASCULAR: Regular rate and rhythm. No murmurs rubs or gallops. No JVD. RESPIRATORY: Clear to auscultation. Breath sounds equal bilaterally. No wheezes or crackles. Comfortable pattern. GASTROINTESTINAL: Abdomen soft, non-tender, nondistended. Bowel sounds present. MUSCULOSKELETAL: Extremities without clubbing, cyanosis, or edema. Warm, well perfused. NEUROLOGICAL: Awake and alert, oriented. No obvious cranial nerve deficits. Five out of 5 muscle strength in the arms and legs. Sensation intact. No pronator drift. Normal speech. A/P Assessment and Plan NEURO: Acute spontaneous subarachnoid hemorrhage, [place] Almeida grade 2 Nimodipine 60 mg by mouth every 4 hours. Cardene if needed to maintain systolic blood pressure 120-140 Maintain normothermia. Ofirmev 1 g IV every 8 hours. Avoid hypovolemia, hyponatremia Dilaudid 0.5-1 mg IV every 3 hours when necessary pain. CTA brain, MRA brain and neck shows no aneurysm. There is reportedly mild vasospasm. Neurocheck q1 hour, Watch closely for worsening vasospasm No cerebrovascular abnormality. Neurosurgery following, Dr. Gutierrez. Await formal angiogram RESP: Nasal cannula wean as tolerated CV: Hyperlipidemia Statin intolerance (myalgias) Continue Zetia 10 mg by mouth daily GI: GERD Nausea Nothing by mouth, Diet if patient can tolerate, and is nausea improved Zofran 4 mg IV every 6 hours when necessary nausea Phenergan 25 mg IM every 6 hours Protonix 40 g IV daily FEN/RENAL: Normal renal function. Monitor intake and output. Monitor electrolytes and replace as indicated per ICU electrolyte replacement protocol. ID: Mild reactive leukocytosis. Monitor for evidence of infection. HEME: Follow-up CBC ENDO: Mild hyperglycemia. Monitor glucose and use low-dose insulin sliding scale if indicated. PROPH: SCDs for DVT prophylaxis. Protonix 40 mg IV daily for stress ulcer prophylaxis and history of GERD and esophagitis. ACCESS: Peripheral IV providing adequate access at this time. Overall impression: Concerning subarachnoid blood and headache, no aneurysm identified. Follow clinical exam and TCDs. Well hydrated. Nausea persists. Thierry Leon MD Apr 22, 2016 16:18
[2016-04-23] VITALS: BP 115/64; PULSE 68; RESP 17; TEMP 98.1; O2SAT 98
[2016-04-23] MEDS: CHLORHEXIDINE GLUCONATE 2 % 1 PACK (2 CLOTHS) TOP SCH (04:00)
[2016-04-23 05:00] VITALS: BP 118/67; PULSE 69; RESP 18; TEMP 97.6; O2SAT 97
[2016-04-23 07:03] LABS: BICARBONATE 28.9 MEQ/L (21.0-32.0); POTASSIUM 4.2 MEQ/L (3.5-5.1)
[2016-04-23 08:00] VITALS: BP 131/77; PULSE 80; RESP 16; TEMP 97; O2SAT 98
[2016-04-23] MEDS: MAGNESIUM HYDROXIDE SUSP 30 ML CUP PO PRN (08:15)
[2016-04-23] MEDS: DOCUSATE SODIUM 100 MG CAP PO PRN (08:15)
[2016-04-23] MEDS: ACETAMINOPHEN 325 MG TAB PO PRN ×2 (08:15→17:39)
[2016-04-23] MEDS: EZETIMIBE 10 MG TAB PO SCH (08:16)
[2016-04-23] MEDS: niMODipine 30 MG CAP PO SCH ×4 (08:16→21:55)
[2016-04-23] MEDS: PANTOPRAZOLE SODIUM 40 MG VIAL IVP SCH (08:17)
[2016-04-23] MEDS: SODIUM CHLORIDE 0.9% FLUSH 5 ML FLUSH IV FLUSH SCH ×2 (08:18→21:56)
[2016-04-23] MEDS: NAPROXEN 500 MG TAB PO SCH ×2 (09:54→21:55)
--- NOTE | 2016-04-23 11:42 | HHI.NSPN ---
History Chief Complaint: Headache. Interval History 56 yr old day 1 after perimesencephalic bleed, still has nausea and headaches but has no new neurologic deficit. CTA, MRA of the neck were performed. No dissection or aneurysm is seen so far. GCS 15. 04/19/16 She remains awake and with no focal deficit. IVF hydration is continued. TCDs shows no vasospams so far 04/20/16 Cerebral angiogram was negative for aneurysm. Benign perimesencephalic SAH is suspected. Headaches are improving. visual marin remain good. TCDs are continued. Rehab services are following to establish rehab needs. 04/21/16 She is nauseous but alert and awake. The nausea is as bad as the headache. 04/22/16 The headaches are improving. CT of the head this am shows normal ventricles and resolution of the SAH. 04/23/16: Pt states severe frontal and bitemporal headaches. Vomited earlier. States headache is as bad as when she came in just not in the back of her head. No paresthesias or weakness. Review of Systems General: Negative for: fever, chills, insomnia Respiratory: Negative for: shortness of breath, cough, sputum Cardiovascular: Negative for: chest pain Gastrointestinal: Positive for: nausea, vomitting, constipation, Negative for : diarrhea Exam Results Vital Signs Date Time Temp Pulse Resp B/P Pulse Ox O2 Delivery O2 Flow Rate FiO2 04/23/16 08:00 97.0 80 16 131/77 98 04/22/16 20:24 21 04/22/16 19:00 Room Air 04/20/16 07:00 2.00 Intake and Output 04/22/16 04/22/16 04/23/16 08:00 16:00 00:00 Intake Total 210 ml 600 ml 360 ml Balance 210 ml 600 ml 360 ml Physical Examination Resp: CTA bilaterally Heart: NSR no murmurs Abd: Soft positive bs Skin: No cyanosis or erythema Muscle: Moves all 4 extremities symmetrically Neuro: Pt awake. Pupils 3mm bilaterally reactive bilaterally. Follows commands well. Speech clear and appropriate. Lab, Micro, Other Results Laboratory Tests Test 2/18/17 05:20 Sodium Level 140 MEQ/L Potassium Level 4.2 MEQ/L Chloride Level 104 MEQ/L Carbon Dioxide Level 28.9 MEQ/L Anion Gap 7 MEQ/L Blood Urea Nitrogen 14 MG/DL Creatinine 0.72 MG/DL Estimat Glomerular Filtration 84 ML/MIN Rate Random Glucose 89 MG/DL Calcium Level 8.8 MG/DL 04/22/16 04/22/16 04/23/16 15:00 23:00 07:00 Intake Total 600 ml 360 ml 15 ml Output Total 0 ml Balance 600 ml 360 ml 15 ml Intake Oral 600 ml 360 ml 15 ml IV Total 0 ml Output Urine Total 0 ml # Voids 4 2 # Bowel Movements 0 0 0 Medical Decision Making Impression and Plan A: 56 y/o FM s/p Perimesencephalic SAH without a cause found. Resolved SAH on CT. Pt with severe headache today and episode of emesis. P: STAT CT head to rule out new hemorrhage as she states her headaches were getting better until today and CT head showed resolved SAH yesterday. Monitor neuro exam Froy Chahal Apr 23, 2016 11:42
[2016-04-23 12:00] VITALS: BP 121/65; PULSE 90; RESP 16; TEMP 98.7; O2SAT 96
[2016-04-23] MEDS ORDERED: BISACODYL 10 MG SUPP RECTAL PRN (12:00)
--- NOTE | 2016-04-23 12:04 | HHI.PR ---
Subjective Remarks complaining of severe headache. had nausea and vomited earlier this morning. d/w the RN. Objective Vitals Vital Signs Date Time Temp Pulse Resp B/P Pulse Ox O2 Delivery O2 Flow Rate FiO2 04/23/16 08:00 97.0 80 16 131/77 98 04/23/16 05:00 97.6 69 18 118/67 97 04/23/16 00:00 98.1 68 17 115/64 98 04/22/16 20:24 96 21 04/22/16 20:00 76 04/22/16 20:00 98.6 78 17 110/65 95 04/22/16 19:00 96 Room Air 04/22/16 16:00 77 04/22/16 16:00 98.4 74 17 131/71 98 I/O 04/22/16 04/22/16 04/22/16 04/23/16 04/23/16 04/23/16 07:00 15:00 23:00 07:00 15:00 23:00 Intake Total 210 ml 600 ml 360 ml 15 ml Output Total 0 ml Balance 210 ml 600 ml 360 ml 15 ml Intake Oral 210 ml 600 ml 360 ml 15 ml IV Total 0 ml 0 ml Output Urine Total 0 ml # Voids 1 4 2 # Bowel Movements 0 0 0 0 Result Diagram: 04/19/16 0507 04/23/16 0520 Imaging Last Impressions Transcranial Doppler Study Complete 04/22/16 0730 Signed Impressions: Service Date/Time: Friday, April 22, 2016 07:55 - CONCLUSION: Mild elevation of the [place] ratio on the right. Serial followup is suggested. Jonathan Singh MD FACR Head CT 04/22/16 0600 Signed Impressions: Service Date/Time: Friday, April 22, 2016 04:09 - CONCLUSION: 1. No evidence of acute intracranial pathology. No masses are identified. 2. Resolution of the previously seen perimesencephalic hemorrhage Tony Steve MD Cerebral Arteriogram 04/19/16 0000 Signed Impressions: Service Date/Time: Tuesday, April 19, 2016 12:57 - CONCLUSION: Negative exam. No aneurysmal disease identified. Joey Concepcion MD Cervical Spine CT 04/17/16 1657 Signed Impressions: Service Date/Time: Sunday, April 17, 2016 17:48 - CONCLUSION: 1. Moderate degenerative change of the lower cervical spine. No acute findings. Juan Robertson MD Neck Magnetic Resonance Angiography 04/17/16 Signed Impressions: Service Date/Time: Sunday, April 17, 2016 20:39 - CONCLUSION: 1. Mild plaque at the carotid bifurcations bilaterally without hemodynamically significant stenosis. Remainder of exam unremarkable. Juan Robertson MD Head Magnetic Resonance Angiography 04/17/16 Signed Impressions: Service Date/Time: Sunday, April 17, 2016 20:39 - CONCLUSION: Normal examination for a patient of this age. Juan Robertson MD Head CTA 04/17/16 Signed Impressions: Service Date/Time: Sunday, April 17, 2016 19:08 - CONCLUSION: 1. No discrete aneurysm is identified on CTA brain. There does appear be some mild vasospasm. Juan Robertson MD Brain MRI 04/17/16 Signed Impressions: Service Date/Time: Sunday, April 17, 2016 20:39 - CONCLUSION: 1. Subarachnoid hemorrhage predominantly around the brainstem. No recent infarction, mass effect or shift. No hydrocephalus. Juan Robertson MD Objective Remarks GENERAL: This is a well-nourished, well-developed patient, in no apparent distress. CARDIOVASCULAR: Regular rate and regular rhythm without murmurs, gallops, or rubs. RESPIRATORY: Clear to auscultation. Breath sounds equal bilaterally. No wheezes , rales, or rhonchi. GASTROINTESTINAL: Abdomen soft, non-tender, nondistended. Normal, active bowel sounds MUSCULOSKELETAL: Extremities without clubbing, cyanosis, or edema. NEURO: Alert & Oriented x4 to person, place, time, situation. Moves all ext x4 Medications and IVs Current Medications IV Flush (NS Flush) 2 ml UNSCH PRN IVF FLUSH AFTER USING IV ACCESS; Start 04/17 at 17:00; Stop 04/17/16 at 19:05; Status DC Ondansetron HCl (Zofran Inj) 4 mg ONCE ONCE IVP Last administered on 17:15; Start 04/17/16 at 17:00; Stop 04/17/16 at 17:01; Status DC Hydromorphone HCl 1 mg 1 mg ONCE ONCE IVS Last administered on 04/17/16 17:15 ; Start 04/17/16 at 17:00; Stop 04/17/16 at 17:01; Status DC Sodium Chloride 1,000 ml @ 1,000 mls/hr Q1H ONCE IV Last administered on 17:14; Start 04/17/16 at 16:57; Stop 04/17/16 at 17:56; Status DC Potassium Chloride/Sodium Chloride (NS + KCl 20 Meq Inj) 1,000 ml @ 125 mls/hr Q8H IV ; Start 04/17/16 at 19:00; Stop 04/17/16 at 19:23; Status DC IV Flush (NS Flush) 2 ml UNSCH PRN IV FLUSH FLUSH AFTER USING IV ACCESS; Start 04/17/16 at 19:00 IV Flush (NS Flush) 2 ml BID IV FLUSH Last administered on 04/23/16 08:18; Start 04/17/16 at 21:00 Acetaminophen (Tylenol) 650 mg Q6H PRN PO PAIN 1-10 AND/OR FEVER >101F; Start 04/17/16 at 19:00; Stop 04/17/16 at 19:23; Status DC Pantoprazole Sodium (Protonix Inj) 40 mg DAILY IV ; Start 04/18/16 at 09:00; Stop 04/18/16 at 09:00; Status DC Ondansetron HCl (Zofran Inj) 4 mg Q6H PRN IV NAUSEA OR VOMITING Last administered on 04/21/16 10:48; Start 04/17/16 at 19:00 Albuterol Sulfate (Albuterol Neb) 2.5 mg Q2HR NEB PRN INH SOB/WHEEZING; Start 04/17/16 at 19:00 Miscellaneous Information 1 [id number] XX ; Start 04/17/16 at 19:00 Chlorhexidine Gluconate (Chlorhexidine 2% Cloth) Taper DAILY@04 TOP Last administered on 04/23/16 04:00; Start 04/18/16 at 04:00; Stop 04/14/17 at 03:59 Chlorhexidine Gluconate (Chlorhexidine 2% Cloth) 3 pack UNSCH PRN TOP HYGIENIC CARE; Start 04/17/16 at 19:00 Nimodipine (Nimotop) 60 mg Q4HR PO Last administered on 04/22/16 03:52; Start 04/17/16 at 20:00; Stop 04/22/16 at 07:12; Status DC Ondansetron HCl 4 mg 4 mg ONCE ONCE IV PUSH Last administered on 04/17/16 19: 06; Start 04/17/16 at 19:15; Stop 04/17/16 at 19:16; Status DC Nicardipine HCl/ Sodium Chloride (Cardene Inj/NS 250 ml Inj) 260 ml @ 0 mls/hr TITRATE IV ; Start 04/17/16 at 19:15; Stop 04/20/16 at 06:53; Status DC EZETIMIBE 10 mg 10 mg DAILY PO Last administered on 04/23/16 08:16; Start at 09:00 Sodium Chloride (NS 1000 ml Inj) 1,000 ml @ 80 mls/hr [id number] IV Last administered on 04/20/16 00:06; Start 04/17/16 at 19:12 IV Flush (NS Flush) 2 ml UNSCH PRN IVF FLUSH AFTER USING IV ACCESS; Start 04/17 at 19:15; Stop 04/17/16 at 19:23; Status DC IV Flush (NS Flush) 2 ml BID IVF ; Start 04/17/16 at 21:00; Stop 04/17/16 at 21: 00; Status DC Labetalol HCl 10 mg 10 mg Q4H PRN IV SYS BP GREATER THAN 160 MMHG; Start at 19:15; Stop 04/22/16 at 07:11; Status DC Nicardipine HCl/ Sodium Chloride (Cardene Inj/NS 250 ml Inj) 260 ml @ 0 mls/hr TITRATE IV ; Start 04/17/16 at 19:15; Stop 04/17/16 at 19:23; Status DC Clonidine (Catapres) 0.1 mg Q6H PRN PO to keep SBP between 140-160; Start 04/17 at 19:15 Pantoprazole Sodium (Protonix Inj) 40 mg DAILY IVP Last administered on 08:17; Start 04/18/16 at 09:00 Acetaminophen (Tylenol) 650 mg Q4H PRN PO PAIN SCALE 1 TO 5 Last administered on 04/23/16 08:15; Start 04/17/16 at 19:15 Acetaminophen/ Hydrocodone Bitart 1 tab 1 tab Q4H PRN PO PAIN SCALE 6 TO 10 Last administered on 04/21/16 10:48; Start 04/17/16 at 19:15; Stop 04/21/16 at 11:00; Status DC Levetriacetam (Keppra 1000 Mg Inj) 100 ml @ 400 mls/hr ONCE ONCE IV Last administered on 04/17/16 21:30; Start 04/17/16 at 19:15; Stop 04/17/16 at 19:29 ; Status DC Docusate Sodium (Colace) 100 mg BID PRN PO CONSTIPATION Last administered on 08:15; Start 04/17/16 at 19:15 Magnesium Hydroxide (Milk Of Magnesia Liq) 30 ml DAILY PRN PO Severe Constipation; Start 04/17/16 at 19:15; Stop 04/17/16 at 19:23; Status DC Nimodipine (Nimotop) 60 mg Q4HR PO ; Start 04/17/16 at 20:00; Stop 04/17/16 at 20:00; Status DC Iohexol (Omnipaque 350 Inj) 75 ml STK-MED ONCE IV Last administered on 19:21; Start 04/17/16 at 19:21; Stop 04/17/16 at 19:22; Status DC Ondansetron HCl (Zofran Odt) 4 mg Q4H PO Last administered on 04/19/16 17:03 ; Start 04/17/16 at 20:00; Stop 04/19/16 at 19:59; Status DC Hydromorphone HCl (Dilaudid Pf Inj) 1 mg UNSCH X1 PRN IV PUSH CARDIOVASCULAR OPERATING ROOM NURSE T MRI Last administered on 04/18/16 16:54; Start 04/17/16 at 20:15; Stop 04/18/16 at 20:14; Status DC Promethazine HCl (Phenergan Inj) 25 mg UNSCH X1 PRN IM CARDIOVASCULAR OPERATING ROOM NURSE TO MRI Last administered on 04/17/16 20:27; Start 04/17/16 at 20:15; Stop 04/18/16 at 20:14 ; Status DC Gadodiamide (Omniscan Pf Inj) 20 ml STK-MED ONCE IV Last administered on 20:46; Start 04/17/16 at 20:46; Stop 04/17/16 at 20:47; Status DC Morphine Sulfate (Morphine Inj) 4 mg Q3H PRN IV PAIN 1 TO 10 Last administered on 04/17/16 21:55; Start 04/17/16 at 22:00 Promethazine HCl (Phenergan Inj) 25 mg Q6H PRN IM NAUSEA/VOMITING Last administered on 04/19/16 05:14; Start 04/17/16 at 22:00 Hydromorphone HCl (Dilaudid Pf Inj) 0.5 mg Q3H PRN IV PUSH PAIN 1-5; Start 02/19 at 22:00; Stop 04/21/16 at 07:13; Status DC Acetaminophen (Ofirmev Inj) 1,000 mg Q8HR IV Last administered on 04/21/16 05: 59; Start 04/17/16 at 22:00; Stop 04/21/16 at 07:13; Status DC Hydromorphone HCl 1 mg 1 mg Q3H PRN IV PUSH PAIN 6-10 Last administered on 04/21 04:20; Start 04/17/16 at 22:00; Stop 04/21/16 at 07:13; Status DC Potassium Chloride 100 ml @ 50 mls/hr Q2H PRN IV For Potassium 2.8 - 3.2 mEq/L ; Start 04/17/16 at 22:45; Stop 04/22/16 at 12:08; Status DC Potassium Chloride (KCl 20 Meq Premix Inj) 100 ml @ 50 mls/hr Q2H PRN IV For Potassium 2.8 - 3.2 mEq/L; Start 04/17/16 at 22:45; Stop 04/22/16 at 12:09; Status DC Potassium Chloride 40 meq 40 meq UNSCH PRN PO/TUBE For Potassium 3.3 - 3.5 mEq/ L; Start 04/17/16 at 22:45; Stop 04/22/16 at 12:09; Status DC Potassium Chloride 100 ml @ 25 mls/hr UNSCH PRN IV For Potassium 3.3 - 3.5 mEq /L; Start 04/17/16 at 22:45; Stop 04/22/16 at 11:59; Status DC Potassium Chloride 100 ml @ 50 mls/hr Q2H PRN IV For Potassium 3.3 - 3.5 mEq/L ; Start 04/17/16 at 22:45; Stop 04/22/16 at 12:00; Status DC Magnesium Sulfate/ Sodium Chloride (Magnesium Sulfate Inj/NS Inj) 100 ml @ 50 mls/hr UNSCH PRN IV For Magnesium 0.9 - 1.1 mg/dL; Start 04/17/16 at 22:45; Stop 04/22/16 at 12:00; Status DC Magnesium Oxide 800 mg 800 mg UNSCH PRN PO For Magnesium 1.2 - 1.6 mg/dL; Start 04/17/16 at 22:45; Stop 04/22/16 at 12:02; Status DC Magnesium Sulfate/ Sodium Chloride (Magnesium Sulfate Inj/NS Inj) 100 ml @ 50 mls/hr UNSCH PRN IV For Magnesium 1.2 - 1.6 mg/dL; Start 04/17/16 at 22:45; Stop 04/22/16 at 12:02; Status DC Potassium Phosphate 2000 mg 2,000 mg Q4H PRN PO For Phosphorus < 2.5 mg/dL; Start 04/17/16 at 22:45; Stop 04/22/16 at 12:03; Status DC Sodium Phosphate/ Sodium Chloride (Sodium Phosphate Inj/NS 250 ml Inj) 250 ml @ 42 mls/hr UNSCH PRN IV For Phosphorus < 2.5 mg/dL; Start 04/17/16 at 22:45 Potassium Chloride (KCl 40 Meq/30 ml Liq) 40 meq UNSCH PRN PO/TUBE SEE LABEL COMMENTS; Start 04/17/16 at 22:45; Stop 04/22/16 at 12:03; Status DC Potassium Phosphate 2000 mg 2,000 mg UNSCH PRN PO/TUBE SEE LABEL COMMENTS; Start 04/17/16 at 22:45; Stop 04/22/16 at 12:03; Status DC Potassium Phosphate 30 mmol/ Sodium Chloride 260 ml @ 42 mls/hr UNSCH PRN IV SEE LABEL COMMENTS; Start 04/17/16 at 22:45; Stop 04/22/16 at 12:03; Status DC Levetriacetam 500 mg/Sodium Chloride 105 ml @ 420 mls/hr Q12HR IV ; Start 04/19 at 21:00; Stop 04/19/16 at 21:00; Status DC Levetriacetam/ Sodium Chloride (Keppra Inj/NS Inj) 105 ml @ 420 mls/hr Q12HR IV Last administered on 04/19/16 19:45; Start 04/19/16 at 12:00; Stop at 06:53; Status DC Lorazepam (Ativan Inj) 2 mg STK-MED ONCE .ROUTE Last administered on 04/19/16 13:03; Start 04/19/16 at 13:03; Stop 04/19/16 at 13:04; Status DC Fentanyl Citrate (fentaNYL INJ) 250 mcg STK-MED ONCE .ROUTE Last administered on 04/19/16 13:39; Start 04/19/16 at 13:39; Stop 04/19/16 at 13:40; Status DC Iodixanol (Visipaque 320 Inj) 105 ml STK-MED ONCE I-ARTERIAL Last administered on 04/19/16 14:37; Start 04/19/16 at 14:37; Stop 04/19/16 at 14:38; Status DC Levetriacetam (Keppra) 500 mg Q12HR PO Last administered on 04/21/16 21:16; Start 04/20/16 at 09:00; Stop 04/22/16 at 07:12; Status DC Pneumococcal Polyvalent Vaccine (Pneumovax-23 Inj) 25 mcg ONCE ONCE IM Last administered on 04/21/16 08:53; Start 04/21/16 at 10:00; Stop 04/21/16 at 10:01 ; Status DC Acetaminophen/ Hydrocodone Bitart ([place] 5-325 Mg) 1 tab [id number] SLIDE SCALE PO ; Start 04/21/16 at 11:00; Stop 04/21/16 at 11:00; Status DC Naproxen (Naprosyn) 500 mg Q12HR PO Last administered on 04/23/16 09:54; Start 04/21/16 at 09:00 Nimodipine (Nimotop) 60 mg QID PO Last administered on 04/23/16 08:16; Start 04/22/16 at 09:00 Magnesium Hydroxide (Milk Of Magnesia Liq) 30 ml DAILY PRN PO CONSTIPATION Last administered on 04/23/16 08:15; Start 04/22/16 at 12:00 A/P Assessment and Plan A/P Acute spontaneous subarachnoid hemorrhage- now with worsening headache today. Nimodipine 60 mg by mouth every 4 hours. continue with pain control. CTA brain, MRA brain and neck shows no aneurysm. There is reportedly mild vasospasm. CT of the head today Neurosurgery following, Dr. Gutierrez. Hyperlipidemia Statin intolerance (myalgias) Continue Zetia 10 mg by mouth daily GERD Nausea- has resolved. constipation antiemetics / laxatives as needed. continue PPI. Mild reactive leukocytosis. Monitor for evidence of infection. PROPH: SCDs for DVT prophylaxis. Protonix 40 mg IV daily for stress ulcer prophylaxis and history of GERD and esophagitis. Khanh Buckley MD Apr 23, 2016 12:04
--- NOTE | 2016-04-23 12:59 | RADRPT ---
EXAM DATE/TIME: 04/23/2016 12:47 [facility] COMPARISON: CT BRAIN W/O CONTRAST, April 17, 2016, 17:48. CT BRAIN W/O CONTRAST, April 22, 2016, 4:09. INDICATIONS : Evaluate subarachnoid hemorrhage. RADIATION DOSE: 46.10 CTDIvol (mGy) MEDICAL HISTORY : migraines. SURGICAL HISTORY : None. ENCOUNTER: Initial ACUITY: 1 day PAIN SCALE: 4/10 LOCATION: cranial TECHNIQUE: Multiple contiguous axial images were obtained of the head. Using automated exposure control and adj ustment of the mA and/or kV according to patient size, radiation dose was kept as low as reasonably a chievable to obtain optimal diagnostic quality images. FINDINGS: CEREBRUM: The ventricles are normal for age. No evidence of midline shift, mass lesion, hemorrhage or acute in farction. No extra-axial fluid collections are seen. POSTERIOR FOSSA: The cerebellum and brainstem are intact. The 4th ventricle is midline. The cerebellopontine angle i s unremarkable. EXTRACRANIAL: The visualized portion of the orbits is intact. SKULL: The calvaria is intact. No evidence of skull fracture. CONCLUSION: Negative noncontrast head CT. Leobardo Pugh MD on April 23, 2016 at 12:56 Board Certified Radiologist. This report was verified electronically.
[2016-04-23] MEDS: MORPHINE SULFATE 4 MG/ML INJ IV PRN (15:53)
[2016-04-23 16:00] VITALS: BP 118/75; PULSE 77; RESP 16; TEMP 99.2; O2SAT 96
[2016-04-23 20:15] VITALS: BP 112/66; PULSE 82; RESP 18; TEMP 98.9; O2SAT 96
[2016-04-24] MEDS: NAPROXEN 500 MG TAB PO SCH ×2 (00:01→09:00)
[2016-04-24 00:39] VITALS: BP 99/57; PULSE 72; RESP 16; TEMP 98.1; O2SAT 96
[2016-04-24] MEDS: CHLORHEXIDINE GLUCONATE 2 % 1 PACK (2 CLOTHS) TOP SCH (04:00)
[2016-04-24 04:05] VITALS: BP 109/62; PULSE 71; RESP 18; TEMP 96.8; O2SAT 96
[2016-04-24] MEDS: ACETAMINOPHEN 325 MG TAB PO PRN (05:31)
[2016-04-24 08:21] VITALS: BP 132/95; PULSE 80; RESP 20; TEMP 97.8; O2SAT 95
[2016-04-24] MEDS: niMODipine 30 MG CAP PO SCH ×2 (08:56→12:37)
[2016-04-24] MEDS: EZETIMIBE 10 MG TAB PO SCH (08:57)
[2016-04-24] MEDS: PANTOPRAZOLE SODIUM 40 MG VIAL IVP SCH (08:58)
[2016-04-24] MEDS: SODIUM CHLORIDE 0.9% FLUSH 5 ML FLUSH IV FLUSH SCH (09:05)
--- NOTE | 2016-04-24 10:53 | HHI.NSPN ---
History Chief Complaint: Headache. Interval History 56 yr old day 1 after perimesencephalic bleed, still has nausea and headaches but has no new neurologic deficit. CTA, MRA of the neck were performed. No dissection or aneurysm is seen so far. GCS 15. 04/19/16 She remains awake and with no focal deficit. IVF hydration is continued. TCDs shows no vasospams so far 04/20/16 Cerebral angiogram was negative for aneurysm. Benign perimesencephalic SAH is suspected. Headaches are improving. visual marin remain good. TCDs are continued. Rehab services are following to establish rehab needs. 04/21/16 She is nauseous but alert and awake. The nausea is as bad as the headache. 04/22/16 The headaches are improving. CT of the head this am shows normal ventricles and resolution of the SAH. 04/23/16: Pt states severe frontal and bitemporal headaches. Vomited earlier. States headache is as bad as when she came in just not in the back of her head. No paresthesias or weakness. 04/24/16: Pt awake and alert. States feeling much better today and wants to go home. No severe headaches. No nausea or vomiting. Ambulating well. Had shower this morning. Review of Systems General: Negative for: fever, chills, insomnia Respiratory: Negative for: shortness of breath, cough, sputum Cardiovascular: Negative for: chest pain Gastrointestinal: Negative for: nausea, vomitting, diarrhea, constipation Exam Results Vital Signs Date Time Temp Pulse Resp B/P Pulse Ox O2 Delivery O2 Flow Rate FiO2 04/24/16 08:21 97.8 80 20 132/95 95 04/22/16 20:24 21 04/22/16 19:00 Room Air 04/20/16 07:00 2.00 Intake and Output 04/23/16 04/23/16 04/24/16 08:00 16:00 00:00 Intake Total 15 ml 240 ml 480 ml Output Total 0 ml 1 ml Balance 15 ml 240 ml 479 ml Physical Examination Resp: CTA bilaterally Heart: NSR no murmurs Abd: Soft positive bs Skin: No cyanosis or erythema Muscle: Moves all 4 extremities symmetrically 5/5 strength. Pt states feels steady ambulating. Neuro: Pt awake. Pupils 3mm bilaterally reactive bilaterally. Follows commands well. Speech clear and appropriate. Face symmetric. Speech clear and appropriate. Lab, Micro, Other Results Last Impressions Head CT 04/23/16 0000 Signed Impressions: Service Date/Time: Saturday, April 23, 2016 12:47 - CONCLUSION: Negative noncontrast head CT. Leobardo Pugh MD Transcranial Doppler Study Complete 04/22/16 0730 Signed Impressions: Service Date/Time: Friday, April 22, 2016 07:55 - CONCLUSION: Mild elevation of the [place] ratio on the right. Serial followup is suggested. Jonathan Singh MD FACR Cerebral Arteriogram 04/19/16 0000 Signed Impressions: Service Date/Time: Tuesday, April 19, 2016 12:57 - CONCLUSION: Negative exam. No aneurysmal disease identified. Joey Concepcion MD Cervical Spine CT 04/17/16 1657 Signed Impressions: Service Date/Time: Sunday, April 17, 2016 17:48 - CONCLUSION: 1. Moderate degenerative change of the lower cervical spine. No acute findings. Juan Robertson MD Neck Magnetic Resonance Angiography 04/17/16 0000 Signed Impressions: Service Date/Time: Sunday, April 17, 2016 20:39 - CONCLUSION: 1. Mild plaque at the carotid bifurcations bilaterally without hemodynamically significant stenosis. Remainder of exam unremarkable. Juan Robertson MD Head Magnetic Resonance Angiography 04/17/16 0000 Signed Impressions: Service Date/Time: Sunday, April 17, 2016 20:39 - CONCLUSION: Normal examination for a patient of this age. Juan Robertson MD Head CTA 04/17/16 0000 Signed Impressions: Service Date/Time: Sunday, April 17, 2016 19:08 - CONCLUSION: 1. No discrete aneurysm is identified on CTA brain. There does appear be some mild vasospasm. Juan Robertson MD Brain MRI 04/17/16 0000 Signed Impressions: Service Date/Time: Sunday, April 17, 2016 20:39 - CONCLUSION: 1. Subarachnoid hemorrhage predominantly around the brainstem. No recent infarction, mass effect or shift. No hydrocephalus. Juan Robertson MD 04/23/16 04/23/16 04/24/16 15:00 23:00 07:00 Intake Total 720 ml Output Total 1 ml Balance 719 ml Intake Oral 720 ml Stool Total 1 ml # Voids 4 1 # Bowel Movements 0 Medical Decision Making Impression and Plan A: 56 y/o FM s/p Perimesencephalic SAH without a cause found. Resolved SAH on CT. P: Pt requests discharge home. Repeat CT head was negative for hemorrhage yesterday. She will follow up with Dr. Gutierrez in one week. Discussed restrictions with pt and . Froy Chahal Apr 24, 2016 10:53
--- NOTE | 2016-04-24 11:58 | HHI.PR ---
Subjective Remarks resting comfortably with no distress. headache has much improved. had a BM. no other new complaints. Objective Vitals Vital Signs Date Time Temp Pulse Resp B/P Pulse Ox O2 Delivery O2 Flow Rate FiO2 04/24/16 08:21 97.8 80 20 132/95 95 04/24/16 04:05 96.8 71 18 109/62 96 04/24/16 00:39 98.1 72 16 99/57 96 04/23/16 20:15 98.9 82 18 112/66 96 04/23/16 16:00 99.2 77 16 118/75 96 04/23/16 12:00 98.7 90 16 121/65 96 I/O 04/23/16 04/23/16 04/23/16 04/24/16 04/24/16 04/24/16 07:00 15:00 23:00 07:00 15:00 23:00 Intake Total 15 ml 720 ml Output Total 0 ml 1 ml Balance 15 ml 719 ml Intake Oral 15 ml 720 ml Output Urine Total 0 ml Stool Total 1 ml # Voids 4 1 # Bowel Movements 0 0 Result Diagram: 04/23/16 0520 Imaging Last Impressions Head CT 04/23/16 0000 Signed Impressions: Service Date/Time: Saturday, April 23, 2016 12:47 - CONCLUSION: Negative noncontrast head CT. Leobardo Pugh MD Transcranial Doppler Study Complete 04/22/16 0730 Signed Impressions: Service Date/Time: Friday, April 22, 2016 07:55 - CONCLUSION: Mild elevation of the [place] ratio on the right. Serial followup is suggested. Jonathan Singh MD FACR Cerebral Arteriogram 04/19/16 0000 Signed Impressions: Service Date/Time: Tuesday, April 19, 2016 12:57 - CONCLUSION: Negative exam. No aneurysmal disease identified. Joey Concepcion MD Cervical Spine CT 04/17/16 1657 Signed Impressions: Service Date/Time: Sunday, April 17, 2016 17:48 - CONCLUSION: 1. Moderate degenerative change of the lower cervical spine. No acute findings. Juan Robertson MD Neck Magnetic Resonance Angiography 04/17/16 0000 Signed Impressions: Service Date/Time: Sunday, April 17, 2016 20:39 - CONCLUSION: 1. Mild plaque at the carotid bifurcations bilaterally without hemodynamically significant stenosis. Remainder of exam unremarkable. Juan Robertson MD Head Magnetic Resonance Angiography 04/17/16 Signed Impressions: Service Date/Time: Sunday, April 17, 2016 20:39 - CONCLUSION: Normal examination for a patient of this age. Juan Robertson MD Head CTA 04/17/16 Signed Impressions: Service Date/Time: Sunday, April 17, 2016 19:08 - CONCLUSION: 1. No discrete aneurysm is identified on CTA brain. There does appear be some mild vasospasm. Juan Robertson MD Brain MRI 04/17/16 Signed Impressions: Service Date/Time: Sunday, April 17, 2016 20:39 - CONCLUSION: 1. Subarachnoid hemorrhage predominantly around the brainstem. No recent infarction, mass effect or shift. No hydrocephalus. Juan Robertson MD Objective Remarks GENERAL: This is a well-nourished, well-developed patient, in no apparent distress. CARDIOVASCULAR: Regular rate and regular rhythm without murmurs, gallops, or rubs. RESPIRATORY: Clear to auscultation. Breath sounds equal bilaterally. No wheezes , rales, or rhonchi. GASTROINTESTINAL: Abdomen soft, non-tender, nondistended. Normal, active bowel sounds MUSCULOSKELETAL: Extremities without clubbing, cyanosis, or edema. NEURO: Alert & Oriented x4 to person, place, time, situation. Moves all ext x4 Medications and IVs Current Medications IV Flush (NS Flush) 2 ml UNSCH PRN IVF FLUSH AFTER USING IV ACCESS; Start 04/17 at 17:00; Stop 04/17/16 at 19:05; Status DC Ondansetron HCl (Zofran Inj) 4 mg ONCE ONCE IVP Last administered on 17:15; Start 04/17/16 at 17:00; Stop 04/17/16 at 17:01; Status DC Hydromorphone HCl 1 mg 1 mg ONCE ONCE IVS Last administered on 04/17/16 17:15 ; Start 04/17/16 at 17:00; Stop 04/17/16 at 17:01; Status DC Sodium Chloride 1,000 ml @ 1,000 mls/hr Q1H ONCE IV Last administered on 17:14; Start 04/17/16 at 16:57; Stop 04/17/16 at 17:56; Status DC Potassium Chloride/Sodium Chloride (NS + KCl 20 Meq Inj) 1,000 ml @ 125 mls/hr Q8H IV ; Start 04/17/16 at 19:00; Stop 04/17/16 at 19:23; Status DC IV Flush (NS Flush) 2 ml UNSCH PRN IV FLUSH FLUSH AFTER USING IV ACCESS; Start 04/17/16 at 19:00 IV Flush (NS Flush) 2 ml BID IV FLUSH Last administered on 04/24/16 09:05; Start 04/17/16 at 21:00 Acetaminophen (Tylenol) 650 mg Q6H PRN PO PAIN 1-10 AND/OR FEVER >101F; Start 04/17/16 at 19:00; Stop 04/17/16 at 19:23; Status DC Pantoprazole Sodium (Protonix Inj) 40 mg DAILY IV ; Start 04/18/16 at 09:00; Stop 04/18/16 at 09:00; Status DC Ondansetron HCl (Zofran Inj) 4 mg Q6H PRN IV NAUSEA OR VOMITING Last administered on 04/21/16 10:48; Start 04/17/16 at 19:00 Albuterol Sulfate (Albuterol Neb) 2.5 mg Q2HR NEB PRN INH SOB/WHEEZING; Start 04/17/16 at 19:00 Miscellaneous Information 1 [id number] XX ; Start 04/17/16 at 19:00 Chlorhexidine Gluconate (Chlorhexidine 2% Cloth) Taper DAILY@04 TOP Last administered on 04/23/16 04:00; Start 04/18/16 at 04:00; Stop 04/14/17 at 03:59 Chlorhexidine Gluconate (Chlorhexidine 2% Cloth) 3 pack UNSCH PRN TOP HYGIENIC CARE; Start 04/17/16 at 19:00 Nimodipine (Nimotop) 60 mg Q4HR PO Last administered on 04/22/16 03:52; Start 04/17/16 at 20:00; Stop 04/22/16 at 07:12; Status DC Ondansetron HCl 4 mg 4 mg ONCE ONCE IV PUSH Last administered on 04/17/16 19: 06; Start 04/17/16 at 19:15; Stop 04/17/16 at 19:16; Status DC Nicardipine HCl/ Sodium Chloride (Cardene Inj/NS 250 ml Inj) 260 ml @ 0 mls/hr TITRATE IV ; Start 04/17/16 at 19:15; Stop 04/20/16 at 06:53; Status DC EZETIMIBE 10 mg 10 mg DAILY PO Last administered on 04/24/16 08:57; Start at 09:00 Sodium Chloride (NS 1000 ml Inj) 1,000 ml @ 80 mls/hr [id number] IV Last administered on 04/20/16 00:06; Start 04/17/16 at 19:12 IV Flush (NS Flush) 2 ml UNSCH PRN IVF FLUSH AFTER USING IV ACCESS; Start 04/17 at 19:15; Stop 04/17/16 at 19:23; Status DC IV Flush (NS Flush) 2 ml BID IVF ; Start 04/17/16 at 21:00; Stop 04/17/16 at 21: 00; Status DC Labetalol HCl 10 mg 10 mg Q4H PRN IV SYS BP GREATER THAN 160 MMHG; Start at 19:15; Stop 04/22/16 at 07:11; Status DC Nicardipine HCl/ Sodium Chloride (Cardene Inj/NS 250 ml Inj) 260 ml @ 0 mls/hr TITRATE IV ; Start 04/17/16 at 19:15; Stop 04/17/16 at 19:23; Status DC Clonidine (Catapres) 0.1 mg Q6H PRN PO to keep SBP between 140-160; Start 04/17 at 19:15 Pantoprazole Sodium (Protonix Inj) 40 mg DAILY IVP Last administered on 08:58; Start 04/18/16 at 09:00 Acetaminophen (Tylenol) 650 mg Q4H PRN PO PAIN SCALE 1 TO 5 Last administered on 04/24/16 05:31; Start 04/17/16 at 19:15 Acetaminophen/ Hydrocodone Bitart 1 tab 1 tab Q4H PRN PO PAIN SCALE 6 TO 10 Last administered on 04/21/16 10:48; Start 04/17/16 at 19:15; Stop 04/21/16 at 11:00; Status DC Levetriacetam (Keppra 1000 Mg Inj) 100 ml @ 400 mls/hr ONCE ONCE IV Last administered on 04/17/16 21:30; Start 04/17/16 at 19:15; Stop 04/17/16 at 19:29 ; Status DC Docusate Sodium (Colace) 100 mg BID PRN PO CONSTIPATION Last administered on 08:15; Start 04/17/16 at 19:15 Magnesium Hydroxide (Milk Of Magnesia Liq) 30 ml DAILY PRN PO Severe Constipation; Start 04/17/16 at 19:15; Stop 04/17/16 at 19:23; Status DC Nimodipine (Nimotop) 60 mg Q4HR PO ; Start 04/17/16 at 20:00; Stop 04/17/16 at 20:00; Status DC Iohexol (Omnipaque 350 Inj) 75 ml STK-MED ONCE IV Last administered on 19:21; Start 04/17/16 at 19:21; Stop 04/17/16 at 19:22; Status DC Ondansetron HCl (Zofran Odt) 4 mg Q4H PO Last administered on 04/19/16 17:03 ; Start 04/17/16 at 20:00; Stop 04/19/16 at 19:59; Status DC Hydromorphone HCl (Dilaudid Pf Inj) 1 mg UNSCH X1 PRN IV PUSH [employer] T MRI Last administered on 04/18/16 16:54; Start 04/17/16 at 20:15; Stop 04/18/16 at 20:14; Status DC Promethazine HCl (Phenergan Inj) 25 mg UNSCH X1 PRN IM [employer] TO MRI Last administered on 04/17/16 20:27; Start 04/17/16 at 20:15; Stop 04/18/16 at 20:14 ; Status DC Gadodiamide (Omniscan Pf Inj) 20 ml STK-MED ONCE IV Last administered on 20:46; Start 04/17/16 at 20:46; Stop 04/17/16 at 20:47; Status DC Morphine Sulfate (Morphine Inj) 4 mg Q3H PRN IV PAIN 1 TO 10 Last administered on 04/23/16 15:53; Start 04/17/16 at 22:00 Promethazine HCl (Phenergan Inj) 25 mg Q6H PRN IM NAUSEA/VOMITING Last administered on 04/19/16 05:14; Start 04/17/16 at 22:00 Hydromorphone HCl (Dilaudid Pf Inj) 0.5 mg Q3H PRN IV PUSH PAIN 1-5; Start 02/19 at 22:00; Stop 04/21/16 at 07:13; Status DC Acetaminophen (Ofirmev Inj) 1,000 mg Q8HR IV Last administered on 04/21/16 05: 59; Start 04/17/16 at 22:00; Stop 04/21/16 at 07:13; Status DC Hydromorphone HCl 1 mg 1 mg Q3H PRN IV PUSH PAIN 6-10 Last administered on 04/21 04:20; Start 04/17/16 at 22:00; Stop 04/21/16 at 07:13; Status DC Potassium Chloride 100 ml @ 50 mls/hr Q2H PRN IV For Potassium 2.8 - 3.2 mEq/L ; Start 04/17/16 at 22:45; Stop 04/22/16 at 12:08; Status DC Potassium Chloride (KCl 20 Meq Premix Inj) 100 ml @ 50 mls/hr Q2H PRN IV For Potassium 2.8 - 3.2 mEq/L; Start 04/17/16 at 22:45; Stop 04/22/16 at 12:09; Status DC Potassium Chloride 40 meq 40 meq UNSCH PRN PO/TUBE For Potassium 3.3 - 3.5 mEq/ L; Start 04/17/16 at 22:45; Stop 04/22/16 at 12:09; Status DC Potassium Chloride 100 ml @ 25 mls/hr UNSCH PRN IV For Potassium 3.3 - 3.5 mEq /L; Start 04/17/16 at 22:45; Stop 04/22/16 at 11:59; Status DC Potassium Chloride 100 ml @ 50 mls/hr Q2H PRN IV For Potassium 3.3 - 3.5 mEq/L ; Start 04/17/16 at 22:45; Stop 04/22/16 at 12:00; Status DC Magnesium Sulfate/ Sodium Chloride (Magnesium Sulfate Inj/NS Inj) 100 ml @ 50 mls/hr UNSCH PRN IV For Magnesium 0.9 - 1.1 mg/dL; Start 04/17/16 at 22:45; Stop 04/22/16 at 12:00; Status DC Magnesium Oxide 800 mg 800 mg UNSCH PRN PO For Magnesium 1.2 - 1.6 mg/dL; Start 04/17/16 at 22:45; Stop 04/22/16 at 12:02; Status DC Magnesium Sulfate/ Sodium Chloride (Magnesium Sulfate Inj/NS Inj) 100 ml @ 50 mls/hr UNSCH PRN IV For Magnesium 1.2 - 1.6 mg/dL; Start 04/17/16 at 22:45; Stop 04/22/16 at 12:02; Status DC Potassium Phosphate 2000 mg 2,000 mg Q4H PRN PO For Phosphorus < 2.5 mg/dL; Start 04/17/16 at 22:45; Stop 04/22/16 at 12:03; Status DC Sodium Phosphate/ Sodium Chloride (Sodium Phosphate Inj/NS 250 ml Inj) 250 ml @ 42 mls/hr UNSCH PRN IV For Phosphorus < 2.5 mg/dL; Start 04/17/16 at 22:45 Potassium Chloride (KCl 40 Meq/30 ml Liq) 40 meq UNSCH PRN PO/TUBE SEE LABEL COMMENTS; Start 04/17/16 at 22:45; Stop 04/22/16 at 12:03; Status DC Potassium Phosphate 2000 mg 2,000 mg UNSCH PRN PO/TUBE SEE LABEL COMMENTS; Start 04/17/16 at 22:45; Stop 04/22/16 at 12:03; Status DC Potassium Phosphate 30 mmol/ Sodium Chloride 260 ml @ 42 mls/hr UNSCH PRN IV SEE LABEL COMMENTS; Start 04/17/16 at 22:45; Stop 04/22/16 at 12:03; Status DC Levetriacetam 500 mg/Sodium Chloride 105 ml @ 420 mls/hr Q12HR IV ; Start 04/19 at 21:00; Stop 04/19/16 at 21:00; Status DC Levetriacetam/ Sodium Chloride (Keppra Inj/NS Inj) 105 ml @ 420 mls/hr Q12HR IV Last administered on 04/19/16t 19:45; Start 04/19/16 at 12:00; Stop at 06:53; Status DC Lorazepam (Ativan Inj) 2 mg STK-MED ONCE .ROUTE Last administered on 04/19/16 13:03; Start 04/19/16 at 13:03; Stop 04/19/16 at 13:04; Status DC Fentanyl Citrate (fentaNYL INJ) 250 mcg STK-MED ONCE .ROUTE Last administered on 04/19/16 13:39; Start 04/19/16 at 13:39; Stop 04/19/16 at 13:40; Status DC Iodixanol (Visipaque 320 Inj) 105 ml STK-MED ONCE I-ARTERIAL Last administered on 04/19/16 14:37; Start 04/19/16 at 14:37; Stop 04/19/16 at 14:38; Status DC Levetriacetam (Keppra) 500 mg Q12HR PO Last administered on 04/21/16 21:16; Start 04/20/16 at 09:00; Stop 04/22/16 at 07:12; Status DC Pneumococcal Polyvalent Vaccine (Pneumovax-23 Inj) 25 mcg ONCE ONCE IM Last administered on 04/21/16 08:53; Start 04/21/16 at 10:00; Stop 04/21/16 at 10:01 ; Status DC Acetaminophen/ Hydrocodone Bitart (Tracy 5-325 Mg) 1 tab [id number] SLIDE SCALE PO ; Start 04/21/16 at 11:00; Stop 04/21/16 at 11:00; Status DC Naproxen (Naprosyn) 500 mg Q12HR PO Last administered on 04/24/16 09:00; Start 04/21/16 at 09:00 Nimodipine (Nimotop) 60 mg QID PO Last administered on 04/24/16 08:56; Start 04/22/16 at 09:00 Magnesium Hydroxide (Milk Of Magnesia Liq) 30 ml DAILY PRN PO CONSTIPATION Last administered on 04/23/16 08:15; Start 04/22/16 at 12:00 Bisacodyl (Dulcolax Supp) 10 mg DAILY PRN RECTAL CONSTIPATION Last administered on 04/23/16 17:40; Start 04/23/16 at 12:00 A/P Assessment and Plan A/P Acute spontaneous subarachnoid hemorrhage- Nimodipine 60 mg by mouth every 4 hours. continue with pain control. CTA brain, MRA brain and neck shows no aneurysm. There is reportedly mild vasospasm. CT of the head yesterday negative. Neurosurgery following, Dr. Gutierrez. Hyperlipidemia Statin intolerance (myalgias) Continue Zetia 10 mg by mouth daily GERD Nausea- has resolved. constipation antiemetics / laxatives as needed. continue PPI. Mild reactive leukocytosis. Monitor for evidence of infection. PROPH: SCDs for DVT prophylaxis. Protonix 40 mg IV daily for stress ulcer prophylaxis and history of GERD and esophagitis. Discharge Planning dc planning per neurosurgery. Khanh Buckley MD Apr 24, 2016 11:58
[2016-04-24 12:46] VITALS: BP 131/76; PULSE 81; RESP 20; TEMP 97.6; O2SAT 97
[2016-04-25] MEDS ORDERED: PROM25TA5 PO (17:18)
[2016-04-25] MEDS ORDERED: REST30CA PO (17:18)
--- NOTE | 2016-05-15 13:50 | HHI.DS ---
Discharge Summary Admission Date Apr 17, 2016 at 19:04 Discharge Date: Apr 24, 2016 Admitting Diagnosis subarachnoid bleed (1) Subarachnoid bleed ICD Code: I60.9 Diagnosis: Principal (2) HTN (hypertension) ICD Code: I10 Diagnosis: Principal Procedures cerebral angiogram. Brief History - From Admission 56 yo WF with PMH of hyperlipidemia, migraine headaches who presented to [facility] [place] today for sudden onset of headache 10/10 severity, bilateral jaw pain, neck pain , nausea, and photophobia that started after getting a haircut. CT brain demonstrated SAH in basilar cisterns concerning for aneurysmal leak. Neurosurgery has seen the patient and requested admission to critical care medicine service. Coags are normal. She is nauseated and continues to complain of headache. Denies weakness, parasthesias, seizures, SOB. PE at Discharge GENERAL: This is a well-nourished, well-developed patient, in no apparent distress. CARDIOVASCULAR: Regular rate and regular rhythm without murmurs, gallops, or rubs. RESPIRATORY: Clear to auscultation. Breath sounds equal bilaterally. No wheezes , rales, or rhonchi. GASTROINTESTINAL: Abdomen soft, non-tender, nondistended. Normal, active bowel sounds MUSCULOSKELETAL: Extremities without clubbing, cyanosis, or edema. NEURO: Alert & Oriented x4 to person, place, time, situation. Moves all ext x4 Transfer Summary Presented with severe headache and hypertension. Subarachnoid hemorrhage but no aneurysm identified. Persistent headache and nausea. BP controll acceptable. Will remain on nimodipine for [address] Gutierrez NS following. I spoke at length with her daughter in [place] who is a nurse today - described are treatment and evaluation to date. Hospital Course Acute spontaneous subarachnoid hemorrhage- Nimodipine 60 mg by mouth every 4 hours. continue with pain control. CTA brain, MRA brain and neck shows no aneurysm. There is reportedly mild vasospasm. CT of the head yesterday negative. Neurosurgery following, Dr. Gutierrez. Hyperlipidemia Statin intolerance (myalgias) Continue Zetia 10 mg by mouth daily GERD Nausea- has resolved. constipation antiemetics / laxatives as needed. continue PPI. Mild reactive leukocytosis. Monitor for evidence of infection. Pt Condition on Discharge: Fair Discharge Disposition: Discharge Home Discharge Time: <= 30 minutes Discharge Instructions DIET: Follow Instructions for: As Tolerated, No Restrictions Activities you can perform: See Additionl Instruction Activities to Avoid: Lifting/Bending, Strenuous Activity, Driving Khanh Buckley MD May 15, 2016 13:50
[2016-06-01] MEDS ORDERED: VITA100064 PO (14:03)
== END 2016-04-24 12:53 | disposition home or self-care (01) | DRG 65 ==
LOC: NEPA 16:44 → NEDA 19:04 → N03A 21:14 → N05B 04-22 22:53
PROVIDERS: ADMIT Internal Medicine; ATTEND Internal Medicine
PROC: B3181ZZ Fluoroscopy of Bilateral Internal Carotid Arteries using Low Osmolar Contrast (ICD-10-PCS; principal; 2016-04-19)
PROC: B31F1ZZ Fluoroscopy of Left Vertebral Artery using Low Osmolar Contrast (ICD-10-PCS; 2016-04-19)
DX: I60.9 Nontraumatic subarachnoid hemorrhage, unspecified (principal); I67.848 Other cerebrovascular vasospasm and vasoconstriction; I10 Essential (primary) hypertension; E78.5 Hyperlipidemia, unspecified; K21.9 Gastro-esophageal reflux disease without esophagitis; D72.828 Other elevated white blood cell count; R73.9 Hyperglycemia, unspecified; G43.909 Migraine, unspecified, not intractable, without status migrainosus; R40.2410 Glasgow coma scale score 13-15, unspecified time; R11.0 Nausea; K59.00 Constipation, unspecified; Z23 Encounter for immunization
CPT/HCPCS: 36224; 36226; 70450; 70496; 70544; 70548; 70551; 72125; 76937; 80048; 80053; 80076; 80320; 83735; 84100; 85025; 85384; 85610; 85652; 85730; 86140; 86850; 86900; 86901; 87641; 90732; 93005; 93886; 96361; 96374; 96375; 99152; 99153; A9579; C1769; C1887; C1894; C9113; J0131; J1170; J1953; J2060; J2270; J2405; J2550; J3010; J7030; Q9967